=== PATIENT | male | born 1965 | race Caucasian/White ===

== ENCOUNTER 2018-07-21 16:00 | Emergency (ER) | payer MEDICAID ==
[~2018-07-21] VITALS: Ht 180.3 cm; Wt 89.6 kg
[2018-07-21] MEDS ORDERED: ASPIRIN 81 MG TABLET CHEW PO ONE (16:30)
[2018-07-21] MEDS ORDERED: SODIUM CHLORIDE FLUSH 10ML SYR IVF ONE (16:30)
[2018-07-21 16:50] LABS: BASOPHILS # (AUTO) 0.04 x10^3/uL (0-0.1); BASOPHILS % (AUTO) 0 % (0-1); EOSINOPHILS # (AUTO) 0.07 x10^3/uL (0-0.4); EOSINOPHILS % (AUTO) 1 % (1-7); LYMPHOCYTES # (AUTO) 2.38 x10^3/uL (1-3.4); LYMPHOCYTES % (AUTO) 24 % (22-44); MD NO; MEAN CORPUSCULAR HEMOGLOBIN 28.2 pg (27.5-34.5); MEAN CORPUSCULAR HGB CONC 33.7 g/dL (33.2-36.2); MEAN CORPUSCULAR VOLUME 83.9 fL (81-97); MEAN PLATELET VOLUME 7.9 fL (7.4-10.4); MONOCYTES # (AUTO) 0.53 x10^3/uL (0.2-0.8); MONOCYTES % (AUTO) 5 % (2-9); NEUTROPHILS # (AUTO) 7.01 x10^3/uL (1.8-6.8); NEUTROPHILS % (AUTO) 70 % (42-75); PLATELET COUNT 285 x10^3/uL (130-400); RED BLOOD COUNT 5.48 x10^6/uL (4.38-5.82); RED CELL DISTRIBUTION WIDTH 14.2 % (9.4-14.8)
[2018-07-21 17:01] LABS: ALANINE AMINOTRANSFERASE 21 U/L (12-78); ALBUMIN 4.1 g/dL (3.4-5.0); ANION GAP 9 mmol/L (5-15); CHLORIDE 104 mmol/L (98-107); CREATININE 0.97 mg/dL (0.7-1.3)
[2018-07-21 17:06] LABS: ALKALINE PHOSPHATASE 89 U/L (45-117); BILIRUBIN,TOTAL 0.8 mg/dL (0.2-1.0); TOTAL PROTEIN 8.1 g/dL (6.4-8.2); TROPONIN I < 0.015 ng/mL (0.000-0.045)
--- NOTE | 2018-07-21 19:30 | NUR ---
PT TO ROOM FROM LOBBY
--- NOTE | 2018-07-21 19:41 | NUR ---
52 Y/O MALE PRESENTS TO THE ER C/O CHEST PAIN X 1 WEEK. PT WAS AMBULATORY HERE TODAY. HE DESCRIBES THE PAIN SUBSTERNAL, "MUSCLE PAIN". PT DESCRIBES THE PAIN A "PULLING PAIN". DENIES ANY SOB, WEAKNESS, DIZZINESS, N/V, DIAPHORESIS. SKIN IS PINK/WARM/DRY. HX OF DIABETES, PT STATES HE IS COMPLIANT WITH MEDS HOWEVER DOES NOT CHECK FSBS LEVELS OFTEN, ALSO HX OF HTN, HYPERLIPIDEMIA, BIPOLAR, DEPRESSION AND PTSD. ALL MONITORING EQUIPMENT APPLIED. VITALS STABLE. NSR ON MONITOR. NO ECTOPY OR ST CHANGES PRESENT. RADHA SHAW AT BEDSIDE EVALUATING PT. WILL CONTINUE TO MONITOR. REPORT GIVEN TO PRIMARY RN SABRINA.
[2018-07-21 19:44] VITALS: BP 133/94
[2018-07-21] MEDS ORDERED: ASPIRIN 81 MG TABLET CHEW ONE (19:47)
== END 2018-07-21 20:53 | disposition home or self-care (01) ==
LOC: ED 20:15
DX: R07.89 Other chest pain (principal)
CPT/HCPCS: 36415; 71046; 80053; 84484; 85025; 93005; 99284

== ENCOUNTER 2018-11-09 10:40 | Inpatient (IN) | payer MEDICAID ==
[~2018-11-09] VITALS: Ht 182.9 cm; Wt 89.6 kg
[2018-11-09 11:29] LABS: BASOPHILS # (AUTO) 0.05 x10^3/uL (0-0.1); BASOPHILS % (AUTO) 1 % (0-1); EOSINOPHILS # (AUTO) 0.16 x10^3/uL (0-0.4); EOSINOPHILS % (AUTO) 2 % (1-7); LYMPHOCYTES # (AUTO) 2.36 x10^3/uL (1-3.4); LYMPHOCYTES % (AUTO) 32 % (22-44); MD NO; MEAN CORPUSCULAR HGB CONC 32.7 g/dL (33.2-36.2); MEAN CORPUSCULAR VOLUME 82.8 fL (81-97); MEAN PLATELET VOLUME 8.6 fL (7.4-10.4); MONOCYTES # (AUTO) 0.53 x10^3/uL (0.2-0.8); MONOCYTES % (AUTO) 7 % (2-9); NEUTROPHILS # (AUTO) 4.26 x10^3/uL (1.8-6.8); NEUTROPHILS % (AUTO) 58 % (42-75); PLATELET COUNT 291 x10^3/uL (130-400); RED CELL DISTRIBUTION WIDTH 15.5 % (9.4-14.8)
[2018-11-09] MEDS ORDERED: SODIUM CHLORIDE FLUSH 10ML SYR IVF ONE (11:30)
[2018-11-09] MEDS ORDERED: VANCOMYCIN 1,800 MG in SODIUM CHLORIDE 0.9% 250 ML IV ONE (11:30)
[2018-11-09] MEDS ORDERED: VANCOMYCIN PER PHARMACY MC PRN ×2 (11:30→13:30)
[2018-11-09 11:37] LABS: ALANINE AMINOTRANSFERASE 19 U/L (12-78); ALBUMIN 3.3 g/dL (3.4-5.0); ANION GAP 11 mmol/L (5-15); CALCIUM 8.6 mg/dL (8.5-10.1); CHLORIDE 100 mmol/L (98-107); CREATININE 0.87 mg/dL (0.7-1.3)
[2018-11-09 11:39] LABS: ALKALINE PHOSPHATASE 133 U/L (45-117); BILIRUBIN,TOTAL 0.5 mg/dL (0.2-1.0); TOTAL PROTEIN 7.6 g/dL (6.4-8.2)
[2018-11-09] MEDS ORDERED: SODIUM CHLORIDE 0.9% 1,000ML IVBOLUS ONE (12:00)
--- NOTE | 2018-11-09 12:10 | NUR ---
Pt presents for worsening wounds to L foot x 3 days. Pt states he does not have PCP. Denies fevers. CSM intact with reduced sensation. VSS.
[2018-11-09] MEDS ORDERED: GABA300C10 PO (12:19)
[2018-11-09] MEDS ORDERED: MIRT15TA4 PO (12:19)
[2018-11-09] MEDS ORDERED: FLUO20CA19 PO (12:19)
[2018-11-09] MEDS ORDERED: INSU100V13 SC (12:19)
[2018-11-09 13:16] VITALS: BP 131/86
[2018-11-09] MEDS ORDERED: hydrALAzine 20 MG/ML, 1ML IVPush PRN (13:30)
[2018-11-09] MEDS ORDERED: ACETAMINOPHEN 325 MG TABLET PO PRN (13:30)
[2018-11-09] MEDS ORDERED: DEXTROSE 50%, 50ML SYRINGE IVPush PRN (13:30)
[2018-11-09] MEDS ORDERED: ENOXAPARIN 40 MG/0.4 ML SQ SCH (13:30)
[2018-11-09] MEDS ORDERED: morphine SULFATE 10 MG/ML, 1ML IVPush PRN (13:30)
[2018-11-09] MEDS ORDERED: ONDANSETRON 2MG/ML, 2ML IVPush PRN (13:30)
[2018-11-09] MEDS ORDERED: GLUCAGON 1 MG IM PRN (13:30)
[2018-11-09] MEDS ORDERED: DEXTROSE 4 GM TAB.CHEW PO PRN (13:30)
[2018-11-09] MEDS ORDERED: PHARMACOKINETIC CONSULTATION MC ONE (14:00)
[2018-11-09] MEDS ORDERED: PHARMACOKINETIC MONITORING MC PRN (14:00)
[2018-11-09] MEDS ORDERED: GADOBUTROL 10 MMOL/10 ML PFS ONE (14:21)
[2018-11-09 14:37] LABS: HEMOGLOBIN A1C 9.7 % (4.2-6.3)
[2018-11-09] MEDS: AMPICILLIN/SULBACTAM 3 GM in SODIUM CHLORIDE 0.9% 100 ML IV SCH ×2 (14:57→22:24)
[2018-11-09] MEDS: NS + 20MEQ KCL 1,000 ML IV SCH (14:58)
[2018-11-09] MEDS: GABAPENTIN 300 MG CAPSULE PO SCH ×2 (15:59→20:33)
[2018-11-09] MEDS: INSULIN LISPRO 100 UNITS/ML, PEN SQ-INSULIN SCH ×2 (16:04→20:44)
[2018-11-09 19:12] VITALS: BP 138/90
[2018-11-09] MEDS: MIRTAZAPINE 15 MG TABLET PO SCH (20:33)
[2018-11-09] MEDS: SODIUM CHLORIDE FLUSH 10ML SYR IVF SCH (20:50)
[2018-11-10] MEDS: VANCOMYCIN 1,800 MG in SODIUM CHLORIDE 0.9% 250 ML IV SCH ×2 (00:16→11:51)
[2018-11-10 01:19] VITALS: BP 129/84
[2018-11-10] MEDS: NS + 20MEQ KCL 1,000 ML IV SCH (03:26)
[2018-11-10 05:45] LABS: ANION GAP 8 mmol/L (5-15); CHLORIDE 108 mmol/L (98-107)
[2018-11-10 05:46] LABS: CREATININE 0.58 mg/dL (0.7-1.3)
[2018-11-10 05:58] LABS: BASOPHILS # (AUTO) 0.05 x10^3/uL (0-0.1); BASOPHILS % (AUTO) 1 % (0-1); EOSINOPHILS # (AUTO) 0.29 x10^3/uL (0-0.4); EOSINOPHILS % (AUTO) 5 % (1-7); LYMPHOCYTES # (AUTO) 2.54 x10^3/uL (1-3.4); LYMPHOCYTES % (AUTO) 43 % (22-44); MD NO; MEAN CORPUSCULAR HEMOGLOBIN 27.2 pg (27.5-34.5); MEAN CORPUSCULAR HGB CONC 33.1 g/dL (33.2-36.2); MEAN CORPUSCULAR VOLUME 82.3 fL (81-97); MONOCYTES % (AUTO) 8 % (2-9); NEUTROPHILS # (AUTO) 2.58 x10^3/uL (1.8-6.8); NEUTROPHILS % (AUTO) 43 % (42-75); PLATELET COUNT 264 x10^3/uL (130-400); RED BLOOD COUNT 4.74 x10^6/uL (4.38-5.82); RED CELL DISTRIBUTION WIDTH 15.8 % (9.4-14.8)
[2018-11-10] MEDS: AMPICILLIN/SULBACTAM 3 GM in SODIUM CHLORIDE 0.9% 100 ML IV SCH ×3 (06:22→22:09)
[2018-11-10 07:05] VITALS: BP 126/79
[2018-11-10] MEDS ORDERED: INSULIN GLARGINE 100 UNITS/ML, PEN SQ-INSULIN SCH (09:00)
[2018-11-10] MEDS: FLUOXETINE HCL 20 MG CAPSULE PO SCH (09:37)
[2018-11-10] MEDS: GABAPENTIN 300 MG CAPSULE PO SCH ×3 (09:37→20:09)
[2018-11-10] MEDS: SODIUM CHLORIDE FLUSH 10ML SYR IVF SCH ×2 (09:39→20:09)
[2018-11-10] MEDS: INSULIN LISPRO 100 UNITS/ML, PEN SQ-INSULIN SCH ×4 (09:44→20:17)
[2018-11-10 12:20] VITALS: BP 133/82
[2018-11-10] MEDS: ENOXAPARIN 40 MG/0.4 ML SQ SCH (14:26)
[2018-11-10] MEDS: MIRTAZAPINE 15 MG TABLET PO SCH (20:09)
[2018-11-10 20:58] VITALS: BP 130/82
[2018-11-11 00:32] VITALS: BP 134/89
[2018-11-11 04:34] LABS: BASOPHILS # (AUTO) 0.02 x10^3/uL (0-0.1); BASOPHILS % (AUTO) 0 % (0-1); EOSINOPHILS # (AUTO) 0.26 x10^3/uL (0-0.4); EOSINOPHILS % (AUTO) 4 % (1-7); LYMPHOCYTES # (AUTO) 2.35 x10^3/uL (1-3.4); LYMPHOCYTES % (AUTO) 39 % (22-44); MD NO; MEAN PLATELET VOLUME 8.4 fL (7.4-10.4); MONOCYTES # (AUTO) 0.41 x10^3/uL (0.2-0.8); MONOCYTES % (AUTO) 7 % (2-9); NEUTROPHILS # (AUTO) 2.98 x10^3/uL (1.8-6.8); NEUTROPHILS % (AUTO) 50 % (42-75); PLATELET COUNT 310 x10^3/uL (130-400); RED CELL DISTRIBUTION WIDTH 15.8 % (9.4-14.8)
[2018-11-11 04:44] LABS: ALANINE AMINOTRANSFERASE 16 U/L (12-78); ALBUMIN 2.9 g/dL (3.4-5.0); ANION GAP 6 mmol/L (5-15); CALCIUM 8.6 mg/dL (8.5-10.1); CHLORIDE 105 mmol/L (98-107); CREATININE 0.62 mg/dL (0.7-1.3)
[2018-11-11 04:51] LABS: ALKALINE PHOSPHATASE 93 U/L (45-117); BILIRUBIN,TOTAL 0.4 mg/dL (0.2-1.0); TOTAL PROTEIN 6.7 g/dL (6.4-8.2)
[2018-11-11 05:12] LABS: HCT (SEDRATE) 44.2 % (39.2-51.8)
[2018-11-11] MEDS: AMPICILLIN/SULBACTAM 3 GM in SODIUM CHLORIDE 0.9% 100 ML IV SCH ×3 (06:08→20:51)
[2018-11-11 06:56] VITALS: BP 131/87
[2018-11-11] MEDS: GABAPENTIN 300 MG CAPSULE PO SCH ×3 (07:55→20:51)
[2018-11-11] MEDS: FLUOXETINE HCL 20 MG CAPSULE PO SCH (07:56)
[2018-11-11] MEDS: SODIUM CHLORIDE FLUSH 10ML SYR IVF SCH ×2 (07:56→20:52)
[2018-11-11] MEDS: INSULIN LISPRO 100 UNITS/ML, PEN SQ-INSULIN SCH ×4 (08:04→20:52)
[2018-11-11] MEDS ORDERED: INSULIN GLARGINE 100 UNITS/ML, PEN SQ-INSULIN SCH (09:00)
[2018-11-11] MEDS: VANCOMYCIN 1,800 MG in SODIUM CHLORIDE 0.9% 250 ML IV SCH ×3 (12:05→23:55)
[2018-11-11 12:24] VITALS: BP 115/81
[2018-11-11] MEDS: ENOXAPARIN 40 MG/0.4 ML SQ SCH (13:52)
[2018-11-11 20:18] VITALS: BP 119/78
[2018-11-11] MEDS: MIRTAZAPINE 15 MG TABLET PO SCH (20:51)
[2018-11-12 01:38] VITALS: BP 133/87
[2018-11-12] MEDS: AMPICILLIN/SULBACTAM 3 GM in SODIUM CHLORIDE 0.9% 100 ML IV SCH ×3 (06:14→21:48)
[2018-11-12] MEDS: INSULIN GLARGINE 100 UNITS/ML, PEN SQ-INSULIN SCH (07:38)
[2018-11-12] MEDS: INSULIN LISPRO 100 UNITS/ML, PEN SQ-INSULIN SCH ×4 (07:38→21:47)
[2018-11-12] MEDS: GABAPENTIN 300 MG CAPSULE PO SCH ×3 (07:39→21:48)
[2018-11-12] MEDS: FLUOXETINE HCL 20 MG CAPSULE PO SCH (07:39)
[2018-11-12] MEDS: SODIUM CHLORIDE FLUSH 10ML SYR IVF SCH ×2 (07:39→21:00)
[2018-11-12 08:06] VITALS: BP 117/78
[2018-11-12] MEDS: VANCOMYCIN 1,800 MG in SODIUM CHLORIDE 0.9% 250 ML IV SCH (11:59)
[2018-11-12] MEDS: ENOXAPARIN 40 MG/0.4 ML SQ SCH (11:59)
[2018-11-12 13:19] VITALS: BP 126/82
[2018-11-12] MEDS: DAPTOMYCIN 550 MG in SODIUM CHLORIDE 0.9% 100 ML IVPB SCH (16:26)
[2018-11-12] MEDS ORDERED: PNEUMOC 13-VALENT VACC, 0.5 ML IM-VACC ONE (17:00)
[2018-11-12 18:39] VITALS: BP 130/84
[2018-11-12] MEDS: MIRTAZAPINE 15 MG TABLET PO SCH (21:48)
[2018-11-13 00:33] VITALS: BP 118/78
[2018-11-13] MEDS: AMPICILLIN/SULBACTAM 3 GM in SODIUM CHLORIDE 0.9% 100 ML IV SCH ×2 (05:52→15:57)
[2018-11-13] MEDS: GABAPENTIN 300 MG CAPSULE PO SCH ×3 (09:12→20:24)
[2018-11-13] MEDS: FLUOXETINE HCL 20 MG CAPSULE PO SCH (09:12)
[2018-11-13] MEDS: INSULIN LISPRO 100 UNITS/ML, PEN SQ-INSULIN SCH ×4 (09:12→20:24)
[2018-11-13] MEDS: SODIUM CHLORIDE FLUSH 10ML SYR IVF SCH ×2 (09:18→20:25)
[2018-11-13] MEDS: INSULIN GLARGINE 100 UNITS/ML, PEN SQ-INSULIN SCH (09:18)
[2018-11-13] MEDS: ENOXAPARIN 40 MG/0.4 ML SQ SCH (11:52)
[2018-11-13 14:36] VITALS: BP 116/75
[2018-11-13] MEDS: DAPTOMYCIN 550 MG in SODIUM CHLORIDE 0.9% 100 ML IVPB SCH (16:42)
[2018-11-13 19:48] VITALS: BP 118/79
[2018-11-13] MEDS: MIRTAZAPINE 15 MG TABLET PO SCH (20:24)
[2018-11-14] MEDS: AMPICILLIN/SULBACTAM 3 GM in SODIUM CHLORIDE 0.9% 100 ML IV SCH ×4 (00:17→23:57)
[2018-11-14 03:30] VITALS: BP 115/78
[2018-11-14] MEDS: INSULIN GLARGINE 100 UNITS/ML, PEN SQ-INSULIN SCH (07:36)
[2018-11-14] MEDS: INSULIN LISPRO 100 UNITS/ML, PEN SQ-INSULIN SCH ×4 (07:37→20:46)
[2018-11-14 07:53] VITALS: BP 105/68
[2018-11-14] MEDS: FLUOXETINE HCL 20 MG CAPSULE PO SCH (09:46)
[2018-11-14] MEDS: GABAPENTIN 300 MG CAPSULE PO SCH ×3 (09:46→20:30)
[2018-11-14] MEDS: SODIUM CHLORIDE FLUSH 10ML SYR IVF SCH ×2 (09:47→20:30)
[2018-11-14] MEDS ORDERED: INSULIN GLARGINE 100 UNITS/ML, PEN SQ-INSULIN ONE (10:30)
[2018-11-14] MEDS: ENOXAPARIN 40 MG/0.4 ML SQ SCH (13:32)
[2018-11-14 13:36] VITALS: BP 113/73
[2018-11-14] MEDS: DAPTOMYCIN 550 MG in SODIUM CHLORIDE 0.9% 100 ML IVPB SCH (17:48)
[2018-11-14 19:08] VITALS: BP 116/76
[2018-11-14] MEDS: MIRTAZAPINE 15 MG TABLET PO SCH (20:30)
[2018-11-15 03:55] VITALS: BP 127/72
[2018-11-15 07:21] VITALS: BP 121/81
[2018-11-15] MEDS: INSULIN LISPRO 100 UNITS/ML, PEN SQ-INSULIN SCH ×4 (07:30→20:52)
[2018-11-15] MEDS: GABAPENTIN 300 MG CAPSULE PO SCH ×3 (07:30→20:48)
[2018-11-15] MEDS: FLUOXETINE HCL 20 MG CAPSULE PO SCH (07:31)
[2018-11-15] MEDS: SODIUM CHLORIDE FLUSH 10ML SYR IVF SCH ×2 (07:56→20:48)
[2018-11-15] MEDS: AMPICILLIN/SULBACTAM 3 GM in SODIUM CHLORIDE 0.9% 100 ML IV SCH ×3 (07:56→23:44)
[2018-11-15] MEDS ORDERED: INSULIN GLARGINE 100 UNITS/ML, PEN SQ-INSULIN SCH (09:00)
[2018-11-15 13:12] VITALS: BP 120/74
[2018-11-15] MEDS: ENOXAPARIN 40 MG/0.4 ML SQ SCH (13:59)
[2018-11-15] MEDS: DAPTOMYCIN 550 MG in SODIUM CHLORIDE 0.9% 100 ML IVPB SCH (15:57)
[2018-11-15 18:48] VITALS: BP 126/79
[2018-11-15] MEDS: MIRTAZAPINE 15 MG TABLET PO SCH (20:48)
[2018-11-16 01:40] VITALS: BP 127/83
[2018-11-16 06:06] LABS: BASOPHILS # (AUTO) 0.05 x10^3/uL (0-0.1); BASOPHILS % (AUTO) 1 % (0-1); EOSINOPHILS % (AUTO) 3 % (1-7); LYMPHOCYTES # (AUTO) 2.73 x10^3/uL (1-3.4); LYMPHOCYTES % (AUTO) 46 % (22-44); MD NO; MEAN CORPUSCULAR HEMOGLOBIN 27.7 pg (27.5-34.5); MEAN CORPUSCULAR HGB CONC 32.7 g/dL (33.2-36.2); MEAN CORPUSCULAR VOLUME 84.5 fL (81-97); MEAN PLATELET VOLUME 8.1 fL (7.4-10.4); MONOCYTES # (AUTO) 0.52 x10^3/uL (0.2-0.8); MONOCYTES % (AUTO) 9 % (2-9); NEUTROPHILS # (AUTO) 2.46 x10^3/uL (1.8-6.8); NEUTROPHILS % (AUTO) 41 % (42-75); PLATELET COUNT 327 x10^3/uL (130-400); RED BLOOD COUNT 5.26 x10^6/uL (4.38-5.82); RED CELL DISTRIBUTION WIDTH 15.5 % (9.4-14.8)
[2018-11-16 06:16] LABS: ALANINE AMINOTRANSFERASE 17 U/L (12-78); ALBUMIN 2.9 g/dL (3.4-5.0); ANION GAP 6 mmol/L (5-15); C-REACTIVE PROTEIN, QUANT 0.63 mg/dL (0.02-0.49); CALCIUM 8.5 mg/dL (8.5-10.1); CHLORIDE 107 mmol/L (98-107); CREATININE 0.65 mg/dL (0.7-1.3)
[2018-11-16 06:18] LABS: ALKALINE PHOSPHATASE 87 U/L (45-117); BILIRUBIN,TOTAL 0.3 mg/dL (0.2-1.0); CREATINE KINASE, TOTAL 52 U/L (39-308); TOTAL PROTEIN 6.9 g/dL (6.4-8.2)
[2018-11-16 06:36] VITALS: BP 131/86
[2018-11-16 06:42] LABS: HCT (SEDRATE) 44.4 % (39.2-51.8)
[2018-11-16] MEDS: GABAPENTIN 300 MG CAPSULE PO SCH ×3 (07:36→20:33)
[2018-11-16] MEDS: FLUOXETINE HCL 20 MG CAPSULE PO SCH (07:36)
[2018-11-16] MEDS: INSULIN LISPRO 100 UNITS/ML, PEN SQ-INSULIN SCH ×4 (07:36→20:49)
[2018-11-16] MEDS: AMPICILLIN/SULBACTAM 3 GM in SODIUM CHLORIDE 0.9% 100 ML IV SCH ×3 (08:09→23:56)
[2018-11-16] MEDS: SODIUM CHLORIDE FLUSH 10ML SYR IVF SCH ×2 (08:10→20:33)
[2018-11-16] MEDS ORDERED: INSULIN GLARGINE 100 UNITS/ML, PEN SQ-INSULIN SCH (09:00)
[2018-11-16 12:30] VITALS: BP 124/80
[2018-11-16] MEDS ORDERED: INSULIN GLARGINE 100 UNITS/ML, PEN SQ-INSULIN ONE (13:00)
[2018-11-16] MEDS: ENOXAPARIN 40 MG/0.4 ML SQ SCH (13:21)
[2018-11-16] MEDS: DAPTOMYCIN 550 MG in SODIUM CHLORIDE 0.9% 100 ML IVPB SCH (15:20)
[2018-11-16 18:39] VITALS: BP 115/74
[2018-11-16] MEDS: MIRTAZAPINE 15 MG TABLET PO SCH (20:33)
[2018-11-17 02:11] VITALS: BP 112/74
[2018-11-17] MEDS: INSULIN LISPRO 100 UNITS/ML, PEN SQ-INSULIN SCH ×3 (08:02→16:27)
[2018-11-17] MEDS: FLUOXETINE HCL 20 MG CAPSULE PO SCH (08:03)
[2018-11-17] MEDS: GABAPENTIN 300 MG CAPSULE PO SCH ×2 (08:03→16:19)
[2018-11-17] MEDS: AMPICILLIN/SULBACTAM 3 GM in SODIUM CHLORIDE 0.9% 100 ML IV SCH ×2 (08:04→15:26)
[2018-11-17] MEDS: SODIUM CHLORIDE FLUSH 10ML SYR IVF SCH (08:04)
[2018-11-17 08:11] VITALS: BP 107/70
[2018-11-17] MEDS ORDERED: INSULIN GLARGINE 100 UNITS/ML, PEN SQ-INSULIN SCH (09:00)
[2018-11-17] MEDS: ENOXAPARIN 40 MG/0.4 ML SQ SCH (11:05)
[2018-11-17 12:31] VITALS: BP 114/72
[2018-11-17] MEDS ORDERED: INSU100I13 SQ-INSULIN (14:27)
[2018-11-17] MEDS ORDERED: AMPI3VIA IV (14:27)
[2018-11-17] MEDS ORDERED: DAPT500V6 IV (14:27)
[2018-11-17] MEDS ORDERED: ACET325T26 PO (14:27)
[2018-11-17] MEDS ORDERED: METF500T PO (14:27)
[2018-11-17] MEDS: DAPTOMYCIN 550 MG in SODIUM CHLORIDE 0.9% 100 ML IVPB SCH (16:19)
== END 2018-11-17 19:28 | DRG 638 ==
LOC: ED 11:44 → 3NW 11:45 → ED 12:10 → 3NW 12:25 → ED 12:25
PROVIDERS: ADMIT Hospitalist; ATTEND Hospitalist
PROC: 02HV33Z Insertion of Infusion Device into Superior Vena Cava, Percutaneous Approach (ICD-10-PCS; principal; 2018-11-13)
PROC: B548ZZA Ultrasonography of Superior Vena Cava, Guidance (ICD-10-PCS; 2018-11-13)
PROC: B5181ZA Fluoroscopy of Superior Vena Cava using Low Osmolar Contrast, Guidance (ICD-10-PCS; 2018-11-13)
DX: E11.628 Type 2 diabetes mellitus with other skin complications (principal); E11.52 Type 2 diabetes mellitus with diabetic peripheral angiopathy with gangrene; M86.8X8 Other osteomyelitis, other site; L03.115 Cellulitis of right lower limb; E44.0 Moderate protein-calorie malnutrition; I96 Gangrene, not elsewhere classified; E11.69 Type 2 diabetes mellitus with other specified complication; B95.62 Methicillin resistant Staphylococcus aureus infection as the cause of diseases classified elsewhere; E11.42 Type 2 diabetes mellitus with diabetic polyneuropathy; R00.0 Tachycardia, unspecified; E86.0 Dehydration; E11.65 Type 2 diabetes mellitus with hyperglycemia; F31.9 Bipolar disorder, unspecified; K76.0 Fatty (change of) liver, not elsewhere classified; L89.899 Pressure ulcer of other site, unspecified stage; Z68.26 Body mass index [BMI] 26.0-26.9, adult; Z59.0 Homelessness; Z79.4 Long term (current) use of insulin; Z79.899 Other long term (current) drug therapy; Z87.891 Personal history of nicotine dependence
CPT/HCPCS: 36415; 36573; 80048; 80053; 80202; 82550; 82962; 83036; 85025; 85651; 86140; 87040; 87070; 87077; 87186; 87205; 93005; 96374; 99285; A9585; G0378; J0295; J0878; J1650; J3370; J3480; C1751; G0009; J1815; J7030; J7050

== ENCOUNTER 2018-12-14 01:27 | Inpatient (IN) | payer MEDICAID ==
[~2018-12-14] VITALS: Ht 182.9 cm; Wt 90.2 kg
[2018-12-25 13:18] VITALS: BP 110/71
== END 2018-12-25 14:50 | disposition home or self-care (01) | DRG 314 ==
LOC: ED 03:07 → EDIP 03:15 → 4WST 03:49 → 3NW 12-25 06:11
PROVIDERS: ADMIT Internal Medicine; ATTEND Internal Medicine
PROC: 02PYX3Z Removal of Infusion Device from Great Vessel, External Approach (ICD-10-PCS; principal; 2018-12-16)
PROC: 02HV33Z Insertion of Infusion Device into Superior Vena Cava, Percutaneous Approach (ICD-10-PCS; 2018-12-16)
PROC: B5181ZA Fluoroscopy of Superior Vena Cava using Low Osmolar Contrast, Guidance (ICD-10-PCS; 2018-12-16)
PROC: B548ZZA Ultrasonography of Superior Vena Cava, Guidance (ICD-10-PCS; 2018-12-16)
DX: T82.524A Displacement of infusion catheter, initial encounter (principal); A41.9 Sepsis, unspecified organism; E87.1 Hypo-osmolality and hyponatremia; M86.171 Other acute osteomyelitis, right ankle and foot; N17.9 Acute kidney failure, unspecified; D69.6 Thrombocytopenia, unspecified; D70.9 Neutropenia, unspecified; E11.42 Type 2 diabetes mellitus with diabetic polyneuropathy; E83.39 Other disorders of phosphorus metabolism; E87.6 Hypokalemia; F31.9 Bipolar disorder, unspecified; Y83.8 Other surgical procedures as the cause of abnormal reaction of the patient, or of later complication, without mention of misadventure at the time of the procedure; G60.8 Other hereditary and idiopathic neuropathies; L29.9 Pruritus, unspecified; W18.39XA Other fall on same level, initial encounter; R50.2 Drug induced fever; S80.211A Abrasion, right knee, initial encounter; S80.212A Abrasion, left knee, initial encounter; L27.0 Generalized skin eruption due to drugs and medicaments taken internally; T36.0X5A Adverse effect of penicillins, initial encounter; Z59.0 Homelessness; Y92.89 Other specified places as the place of occurrence of the external cause; Z88.8 Allergy status to other drugs, medicaments and biological substances; Z79.2 Long term (current) use of antibiotics; Z79.4 Long term (current) use of insulin; Z79.899 Other long term (current) drug therapy; Z87.891 Personal history of nicotine dependence; Y93.89 Activity, other specified; Y99.8 Other external cause status
CPT/HCPCS: 36415; 71045; 76700; 77001; 80053; 80061; 80069; 81001; 82550; 82962; 83036; 83690; 83735; 84100; 84439; 84443; 85025; 85651; 86140; 87040; 87324; 89055; 93005; 96360; G0378; J0712; J1335; J1650; J2405; J3370; Q0162; C1751; J1815; J7030; J7050; Q0163

== ENCOUNTER 2018-12-27 04:11 | Emergency (ER) | payer MEDICAID ==
[~2018-12-27] VITALS: Ht 170.2 cm; Wt 85.0 kg
[2018-12-27 06:22] VITALS: BP 152/87
== END 2018-12-27 08:22 | disposition left against medical advice (07) ==
LOC: ED 05:18
DX: M25.551 Pain in right hip (principal); M25.561 Pain in right knee; M79.651 Pain in right thigh
CPT/HCPCS: 72170; 99283

== ENCOUNTER 2020-03-19 07:20 | Inpatient (IN) | payer MEDICAID ==
[~2020-03-19] VITALS: Ht 182.9 cm; Wt 81.5 kg
[~2020-03-19 07:20] MED LIST: ACET325T26 PO; AMPI3VIA IV; ASCO500T9 PO; CHOL400T2 PO; DAPT500V6 IV; DOCU-131 PO; FLUO20CA19 PO; FLUO20CA23 PO; GABA300C PO; GABA300C10 PO; GLIP5TAB10 PO; INSU100C5 SQ-INSULIN; INSU100I11 SQ-INSULIN; INSU100I13 SQ-INSULIN; INSU100V13 SC; INSU100V13 SQ; LINE600T15 PO; MELA3TAB31 PO; METF500T PO; METR500T PO; MIRT-34 PO; MIRT7.5T8 PO; MULT1TAB76 PO; ONDA4TAB13 PO; PIPE3.375 IV; TRAZ50TA66 PO; ZIPR60CA2 PO
--- NOTE | 2020-03-19 07:29 | NUR ---
PT BIB EMS FOR RIGHT FOOT REDNESS, SWELLING AND PAIN. PT SAYS "I WENT TO BED IT WAS FINE AND I WOKE UP THIS MORNING AND IT WAS LIKE THAT". PTS RIGHT FOOT APPEARS TO HAVE AN INFECTIONS MUCH OLDER THAN 12 HOURS OLD. PT RESTING IN [facility]. PROVIDER BEDSIDE FOR ASSESSMENT.
[2020-03-19] MEDS ORDERED: SODIUM CHLORIDE FLUSH 10ML SYR IVF ONE (07:30)
[2020-03-19] MEDS ORDERED: CLINDAMYCIN PMX 600MG/50ML 50 ML IV ONE (07:30)
[2020-03-19] MEDS ORDERED: CLINDAMYCIN PMX 600MG/50ML 50 ML ONE (07:33)
--- NOTE | 2020-03-19 07:59 | NUR ---
PT UP WALKING AROUND THE ROOM. REMOVING MONITORING EQUIPMENT. PT PUT BACK INTO RNEY
--- NOTE | 2020-03-19 08:09 | NUR ---
BLOODCULTURES DRAWN PRIOR TO ADM OF ABX
[2020-03-19 08:14] LABS: BASOPHILS % (AUTO) 1 % (0-1); EOSINOPHILS % (AUTO) 1 % (1-7); LYMPHOCYTES % (AUTO) 16 % (22-44); MEAN CORPUSCULAR HEMOGLOBIN 25.4 pg (27.5-34.5); MEAN CORPUSCULAR HGB CONC 33.1 g/dL (33.2-36.2); MONOCYTES % (AUTO) 9 % (2-9); NEUTROPHILS % (AUTO) 74 % (42-75); PLATELET COUNT 450 x10^3/uL (130-400); RED BLOOD COUNT 5.39 x10^6/uL (4.38-5.82); RED CELL DISTRIBUTION WIDTH 13.2 % (9.4-14.8)
[2020-03-19 08:15] LABS: MD NO
[2020-03-19 08:24] LABS: ALBUMIN 2.9 g/dL (3.4-5.0); ANION GAP 11 mmol/L (5-15); CALCIUM 9.2 mg/dL (8.5-10.1); CHLORIDE 95 mmol/L (98-107); CREATININE 0.95 mg/dL (0.7-1.3)
[2020-03-19] MEDS ORDERED: SODIUM CHLORIDE 0.9% 1,000ML IVBOLUS ONE (09:00)
--- NOTE | 2020-03-19 09:18 | NUR ---
REC BS REPORT PT RESTING NADN IV INFUSING WELL
[2020-03-19] MEDS ORDERED: VANCOMYCIN PER PHARMACY MC PRN (10:00)
[2020-03-19 10:09] LABS: HCT (SEDRATE) 41.4 % (39.2-51.8)
--- NOTE | 2020-03-19 11:00 | NUR ---
R FOOT CULTURE SENT MEAL HAS BEEN ORDRED
[2020-03-19] MEDS: CEFEPIME 2 GM in DEXTROSE 5% 100 ML IV SCH ×2 (11:17→19:34)
[2020-03-19] MEDS ORDERED: PHARMACOKINETIC CONSULTATION MC ONE (11:30)
[2020-03-19] MEDS ORDERED: VANCOMYCIN 1,900 MG in SODIUM CHLORIDE 0.9% 250 ML IV ONE (11:30)
[2020-03-19] MEDS ORDERED: PHARMACOKINETIC MONITORING MC PRN (11:30)
[2020-03-19] MEDS: INSULIN LISPRO 100 UNITS/ML, PEN SQ-INSULIN SCH ×3 (13:22→21:13)
--- NOTE | 2020-03-19 14:04 | NUR ---
PT IN MRI AT THIS TIME.
--- NOTE | 2020-03-19 14:43 | NUR ---
PT CONTINUES IN MRI AT THIS TIME.
[2020-03-19] MEDS ORDERED: GADOTERATE 10 MMOL/20 ML SYR ONE (15:08)
--- NOTE | 2020-03-19 15:38 | NUR ---
ATTEMPTED TO CALL REPORT x3. RECEIVING NURSE UNAVAILABLE. PT RETURNED FROM MRI AT THIS TIME, AWAITING TRANSPORT.
--- NOTE | 2020-03-19 15:40 | NUR ---
REPORT TO RECEIVING RN. PT LEAVING FLOOR AT THIS TIME.
[2020-03-19] MEDS ORDERED: HYDR50TA99 PO (17:21)
[2020-03-19] MEDS ORDERED: MIRT-37 PO (17:21)
[2020-03-19] MEDS ORDERED: GLIP-142 PO (17:21)
[2020-03-19] MEDS ORDERED: TRAZ150T62 PO (17:21)
[2020-03-19] MEDS ORDERED: ATOR20TA37 PO (17:21)
[2020-03-19] MEDS ORDERED: geodon (17:21)
[2020-03-19] MEDS ORDERED: LISI5TAB7 PO (17:21)
[2020-03-19] MEDS ORDERED: ZIPR80CA2 PO (17:25)
[2020-03-19 18:20] VITALS: BP 117/73
[2020-03-19] MEDS: ENOXAPARIN 40 MG/0.4 ML SQ SCH (21:03)
[2020-03-20 02:02] VITALS: BP 98/59
[2020-03-20] MEDS: CEFEPIME 2 GM in DEXTROSE 5% 100 ML IV SCH ×3 (03:28→19:15)
[2020-03-20 05:46] LABS: BASOPHILS % (AUTO) 1 % (0-1); EOSINOPHILS % (AUTO) 3 % (1-7); LYMPHOCYTES % (AUTO) 29 % (22-44); MEAN CORPUSCULAR HEMOGLOBIN 25.5 pg (27.5-34.5); MEAN CORPUSCULAR HGB CONC 33.6 g/dL (33.2-36.2); MEAN PLATELET VOLUME 7.1 fL (7.4-10.4); MONOCYTES % (AUTO) 12 % (2-9); NEUTROPHILS % (AUTO) 56 % (42-75); PLATELET COUNT 401 x10^3/uL (130-400); RED BLOOD COUNT 4.88 x10^6/uL (4.38-5.82)
[2020-03-20 05:56] LABS: ALBUMIN 2.5 g/dL (3.4-5.0); ANION GAP 7 mmol/L (5-15); CALCIUM 8.7 mg/dL (8.5-10.1); CHLORIDE 102 mmol/L (98-107)
[2020-03-20] MEDS ORDERED: VANCOMYCIN 1,500 MG in SODIUM CHLORIDE 0.9% 250 ML IV SCH (06:00)
[2020-03-20 06:01] LABS: ALANINE AMINOTRANSFERASE 27 U/L (12-78); ALKALINE PHOSPHATASE 105 U/L (45-117); BILIRUBIN,TOTAL 0.4 mg/dL (0.2-1.0); CREATININE 0.71 mg/dL (0.7-1.3); TOTAL PROTEIN 7.3 g/dL (6.4-8.2)
[2020-03-20 06:04] LABS: MD NO
[2020-03-20 07:34] VITALS: BP 118/76
[2020-03-20] MEDS: INSULIN LISPRO 100 UNITS/ML, PEN SQ-INSULIN SCH ×4 (07:50→20:06)
[2020-03-20 12:41] VITALS: BP 112/69
[2020-03-20] MEDS: VANCOMYCIN 1,500 MG in SODIUM CHLORIDE 0.9% 250 ML IV SCH (17:34)
[2020-03-20 18:44] VITALS: BP 101/65
[2020-03-20] MEDS: ENOXAPARIN 40 MG/0.4 ML SQ SCH (20:00)
[2020-03-20] MEDS: INSULIN GLARGINE 100 UNITS/ML, PEN SQ-INSULIN SCH (20:06)
[2020-03-21 00:59] VITALS: BP 123/76
[2020-03-21] MEDS: CEFEPIME 2 GM in DEXTROSE 5% 100 ML IV SCH ×3 (03:40→19:06)
[2020-03-21 06:03] LABS: BASOPHILS % (AUTO) 1 % (0-1); EOSINOPHILS % (AUTO) 4 % (1-7); LYMPHOCYTES % (AUTO) 30 % (22-44); MEAN CORPUSCULAR HEMOGLOBIN 24.9 pg (27.5-34.5); MEAN CORPUSCULAR HGB CONC 32.7 g/dL (33.2-36.2); MEAN PLATELET VOLUME 7.2 fL (7.4-10.4); MONOCYTES % (AUTO) 10 % (2-9); NEUTROPHILS % (AUTO) 55 % (42-75); PLATELET COUNT 444 x10^3/uL (130-400); RED BLOOD COUNT 5.01 x10^6/uL (4.38-5.82); RED CELL DISTRIBUTION WIDTH 13.5 % (9.4-14.8)
[2020-03-21 06:05] LABS: MD NO
[2020-03-21 06:14] LABS: CHLORIDE 103 mmol/L (98-107)
[2020-03-21 06:21] LABS: ALANINE AMINOTRANSFERASE 21 U/L (12-78); ALBUMIN 2.4 g/dL (3.4-5.0); ALKALINE PHOSPHATASE 102 U/L (45-117); ANION GAP 7 mmol/L (5-15); BILIRUBIN,TOTAL 0.6 mg/dL (0.2-1.0); CALCIUM 8.3 mg/dL (8.5-10.1); CREATININE 0.63 mg/dL (0.7-1.3); TOTAL PROTEIN 7.2 g/dL (6.4-8.2)
[2020-03-21 06:32] LABS: OCCULT BLOOD NEGATIVE (NEGATIVE)
[2020-03-21 06:48] VITALS: BP 128/78
[2020-03-21] MEDS: VANCOMYCIN 1,500 MG in SODIUM CHLORIDE 0.9% 250 ML IV SCH (07:35)
[2020-03-21] MEDS: INSULIN LISPRO 100 UNITS/ML, PEN SQ-INSULIN SCH ×4 (07:36→21:05)
[2020-03-21] MEDS ORDERED: hydrOXyzine 50MG TABLET PO PRN (11:00)
[2020-03-21] MEDS: ZIPRASIDONE 40MG CAPSULE PO SCH ×2 (11:39→20:54)
[2020-03-21 13:23] VITALS: BP 115/78
[2020-03-21] MEDS: VANCOMYCIN 1,600 MG in SODIUM CHLORIDE 0.9% 250 ML IV SCH (14:17)
[2020-03-21 19:49] VITALS: BP 121/79
[2020-03-21] MEDS: MIRTAZAPINE 15 MG TABLET PO SCH (20:54)
[2020-03-21] MEDS: ENOXAPARIN 40 MG/0.4 ML SQ SCH (20:54)
[2020-03-21] MEDS: ATORVASTATIN 20 MG TABLET PO SCH (20:54)
[2020-03-21] MEDS: TRAZODONE 150MG TABLET PO PRN (20:57)
[2020-03-21] MEDS: INSULIN GLARGINE 100 UNITS/ML, PEN SQ-INSULIN SCH (21:04)
[2020-03-22] MEDS: VANCOMYCIN 1,600 MG in SODIUM CHLORIDE 0.9% 250 ML IV SCH ×2 (01:57→15:15)
[2020-03-22 02:47] VITALS: BP 111/73
[2020-03-22] MEDS: CEFEPIME 2 GM in DEXTROSE 5% 100 ML IV SCH ×3 (03:59→20:00)
[2020-03-22] MEDS: ZIPRASIDONE 40MG CAPSULE PO SCH ×2 (07:37→20:01)
[2020-03-22] MEDS: INSULIN LISPRO 100 UNITS/ML, PEN SQ-INSULIN SCH ×4 (07:37→20:01)
[2020-03-22 07:58] VITALS: BP 105/69
[2020-03-22 14:04] VITALS: BP 107/64
[2020-03-22] MEDS: CEFAZOLIN PMX 1GM/50ML 50 ML IV SCH ×2 (16:21→23:57)
[2020-03-22 18:28] VITALS: BP 103/64
[2020-03-22] MEDS: ENOXAPARIN 40 MG/0.4 ML SQ SCH (20:00)
[2020-03-22] MEDS: MIRTAZAPINE 15 MG TABLET PO SCH (20:01)
[2020-03-22] MEDS: ATORVASTATIN 20 MG TABLET PO SCH (20:01)
[2020-03-22] MEDS ORDERED: INSULIN GLARGINE 100 UNITS/ML, PEN SQ-INSULIN SCH (21:00)
[2020-03-23 02:03] VITALS: BP 117/76
[2020-03-23] MEDS: CEFEPIME 2 GM in DEXTROSE 5% 100 ML IV SCH (03:09)
[2020-03-23 06:51] VITALS: BP 107/68
[2020-03-23] MEDS: CEFAZOLIN PMX 1GM/50ML 50 ML IV SCH (07:50)
[2020-03-23] MEDS: ZIPRASIDONE 40MG CAPSULE PO SCH ×2 (07:50→20:20)
[2020-03-23] MEDS: INSULIN LISPRO 100 UNITS/ML, PEN SQ-INSULIN SCH ×4 (07:50→20:30)
[2020-03-23 08:13] LABS: ALANINE AMINOTRANSFERASE 16 U/L (12-78); ALBUMIN 2.4 g/dL (3.4-5.0); ANION GAP 4 mmol/L (5-15); CALCIUM 8.5 mg/dL (8.5-10.1); CHLORIDE 107 mmol/L (98-107); CREATININE 0.64 mg/dL (0.7-1.3)
[2020-03-23 08:14] LABS: BASOPHILS % (AUTO) 1 % (0-1); EOSINOPHILS % (AUTO) 5 % (1-7); LYMPHOCYTES % (AUTO) 27 % (22-44); MEAN CORPUSCULAR HEMOGLOBIN 24.8 pg (27.5-34.5); MEAN CORPUSCULAR HGB CONC 32.5 g/dL (33.2-36.2); MEAN PLATELET VOLUME 6.9 fL (7.4-10.4); MONOCYTES % (AUTO) 7 % (2-9); NEUTROPHILS % (AUTO) 60 % (42-75); PLATELET COUNT 494 x10^3/uL (130-400); RED BLOOD COUNT 4.92 x10^6/uL (4.38-5.82); RED CELL DISTRIBUTION WIDTH 13.3 % (9.4-14.8)
[2020-03-23 08:15] LABS: ALKALINE PHOSPHATASE 92 U/L (45-117); BILIRUBIN,TOTAL 0.3 mg/dL (0.2-1.0)
[2020-03-23 08:18] LABS: MD NO
[2020-03-23] MEDS ORDERED: CEFAZOLIN 2,000 MG in SODIUM CHLORIDE 0.9% 50 ML IV SCH (10:30)
[2020-03-23] MEDS: CEFAZOLIN PMX 2GM/50ML 50 ML IVPB SCH ×2 (11:21→18:37)
[2020-03-23 12:35] VITALS: BP 110/70
[2020-03-23 18:47] VITALS: BP 113/75
[2020-03-23] MEDS: ENOXAPARIN 40 MG/0.4 ML SQ SCH (20:00)
[2020-03-23] MEDS: MIRTAZAPINE 15 MG TABLET PO SCH (20:20)
[2020-03-23] MEDS: ATORVASTATIN 20 MG TABLET PO SCH (20:20)
[2020-03-23] MEDS: TRAZODONE 150MG TABLET PO PRN (20:29)
[2020-03-23] MEDS ORDERED: INSULIN GLARGINE 100 UNITS/ML, PEN SQ-INSULIN SCH (21:00)
[2020-03-24 00:51] VITALS: BP 110/71
[2020-03-24] MEDS: CEFAZOLIN PMX 2GM/50ML 50 ML IVPB SCH ×2 (03:02→11:22)
[2020-03-24 05:46] LABS: BASOPHILS % (AUTO) 0 % (0-1); EOSINOPHILS % (AUTO) 4 % (1-7); LYMPHOCYTES % (AUTO) 31 % (22-44); MEAN CORPUSCULAR HEMOGLOBIN 25.3 pg (27.5-34.5); MEAN PLATELET VOLUME 6.9 fL (7.4-10.4); MONOCYTES % (AUTO) 8 % (2-9); NEUTROPHILS % (AUTO) 57 % (42-75); PLATELET COUNT 527 x10^3/uL (130-400); RED BLOOD COUNT 4.96 x10^6/uL (4.38-5.82); RED CELL DISTRIBUTION WIDTH 13.4 % (9.4-14.8)
[2020-03-24 05:47] LABS: MD NO
[2020-03-24 05:50] LABS: ANION GAP 4 mmol/L (5-15); CALCIUM 9.1 mg/dL (8.5-10.1); CHLORIDE 104 mmol/L (98-107)
[2020-03-24 07:30] VITALS: BP 109/72
[2020-03-24] MEDS: INSULIN LISPRO 100 UNITS/ML, PEN SQ-INSULIN SCH ×3 (07:43→15:58)
[2020-03-24] MEDS: ZIPRASIDONE 40MG CAPSULE PO SCH (07:43)
[2020-03-24] MEDS ORDERED: ZIPR40CA2 PO (11:48)
[2020-03-24] MEDS ORDERED: ENOX40SY4 SQ (11:48)
[2020-03-24] MEDS ORDERED: INSU100I13 SQ-INSULIN (11:48)
[2020-03-24] MEDS ORDERED: CEFA2PLA9 IV (11:48)
[2020-03-24 12:51] VITALS: BP 107/72
== END 2020-03-24 16:22 | DRG 638 ==
LOC: ED 07:50 → EDIP 08:35 → 3N 15:43
PROVIDERS: ADMIT Internal Medicine; ATTEND Internal Medicine
PROC: 02HV33Z Insertion of Infusion Device into Superior Vena Cava, Percutaneous Approach (ICD-10-PCS; principal; 2020-03-21)
PROC: B5181ZA Fluoroscopy of Superior Vena Cava using Low Osmolar Contrast, Guidance (ICD-10-PCS; 2020-03-21)
PROC: B548ZZA Ultrasonography of Superior Vena Cava, Guidance (ICD-10-PCS; 2020-03-21)
DX: E11.621 Type 2 diabetes mellitus with foot ulcer (principal); E87.2 Acidosis; M86.171 Other acute osteomyelitis, right ankle and foot; L03.115 Cellulitis of right lower limb; E11.628 Type 2 diabetes mellitus with other skin complications; B95.8 Unspecified staphylococcus as the cause of diseases classified elsewhere; E11.42 Type 2 diabetes mellitus with diabetic polyneuropathy; E11.65 Type 2 diabetes mellitus with hyperglycemia; E11.69 Type 2 diabetes mellitus with other specified complication; F31.9 Bipolar disorder, unspecified; F43.10 Post-traumatic stress disorder, unspecified; L27.0 Generalized skin eruption due to drugs and medicaments taken internally; L97.519 Non-pressure chronic ulcer of other part of right foot with unspecified severity; L97.529 Non-pressure chronic ulcer of other part of left foot with unspecified severity; Z53.20 Procedure and treatment not carried out because of patient's decision for unspecified reasons; Z79.2 Long term (current) use of antibiotics; Z79.4 Long term (current) use of insulin; Z79.899 Other long term (current) drug therapy; Z86.14 Personal history of Methicillin resistant Staphylococcus aureus infection; Z88.1 Allergy status to other antibiotic agents; Z91.19 Patient's noncompliance with other medical treatment and regimen; Z87.891 Personal history of nicotine dependence; Z88.8 Allergy status to other drugs, medicaments and biological substances
CPT/HCPCS: 36415; 36573; 80048; 80053; 80202; 82040; 82272; 82962; 83036; 83540; 83550; 83605; 84145; 84443; 85025; 85651; 86140; 87040; 87070; 87077; 87147; 87186; 87205; 93922; 96365; 96375; 99285; G0378; J0690; J1650; J3370; A9575; C1751; J1815; J7030; J7050

== ENCOUNTER 2020-05-07 09:11 | Emergency (ER) | payer MEDICAID ==
[~2020-05-07] VITALS: Ht 182.9 cm; Wt 80.0 kg
[~2020-05-07 09:11] MED LIST changes: +ATOR20TA37 PO; +CEFA2PLA9 IV; +ENOX40SY4 SQ; +GLIP-142 PO; +HYDR50TA99 PO; +LISI5TAB7 PO; +MIRT-37 PO; +TRAZ150T62 PO; +ZIPR40CA2 PO; +ZIPR80CA2 PO; +geodon
[2020-05-07 09:58] LABS: BASOPHILS % (AUTO) 1 % (0-1); EOSINOPHILS % (AUTO) 0 % (1-7); LYMPHOCYTES % (AUTO) 18 % (22-44); MEAN CORPUSCULAR HEMOGLOBIN 26.3 pg (27.5-34.5); MEAN CORPUSCULAR HGB CONC 32.6 g/dL (33.2-36.2); MEAN PLATELET VOLUME 7.7 fL (7.4-10.4); MONOCYTES % (AUTO) 6 % (2-9); NEUTROPHILS % (AUTO) 75 % (42-75); PLATELET COUNT 291 x10^3/uL (130-400); RED BLOOD COUNT 5.46 x10^6/uL (4.38-5.82); RED CELL DISTRIBUTION WIDTH 18.2 % (9.4-14.8)
[2020-05-07 09:59] LABS: MD NO
[2020-05-07 10:10] LABS: ALANINE AMINOTRANSFERASE 15 U/L (12-78); ALBUMIN 3.7 g/dL (3.4-5.0); ANION GAP 12 mmol/L (5-15); CALCIUM 9.1 mg/dL (8.5-10.1); CHLORIDE 98 mmol/L (98-107); CREATININE 1.46 mg/dL (0.7-1.3)
--- NOTE | 2020-05-07 10:21 | NUR ---
THIS IS A 54 RYAN OLD MALE WHO STATES HE HAS COME ON HARD TIMES AND HAS NO JOB, AND NO PLACE TO LIVE. HE ADMITS TO PREVIOUS ATTEMPTS IN SUICIDE THAT INCLUDED SLITTTING HIS WRISTS. PLAN PER PT IS TO DRINK HIMSELF TO . PT ADMITS TO NO MONEY AT THIS TIME BUT ACCESS TO FOOD STAMPS. PT IS CALM AND COOPERTIVE. ROOM SECURE AND SITTER IN HALLWAY
[2020-05-07 10:24] LABS: ALKALINE PHOSPHATASE 116 U/L (45-117); BILIRUBIN,TOTAL 0.6 mg/dL (0.2-1.0); TOTAL PROTEIN 7.9 g/dL (6.4-8.2)
[2020-05-07 10:35] LABS: SALICYLATE LEVEL < 1.7 mg/dL (2.8-20.0)
[2020-05-07 11:00] LABS: MICROSCOPIC AUTO
[2020-05-07] MEDS ORDERED: INSULIN REGULAR 100 UNITS/ML, 3ML VIAL IVPush ONE ×2 (11:00→13:00)
[2020-05-07] MEDS ORDERED: SODIUM CHLORIDE 0.9% 1,000ML IVBOLUS ONE (11:00)
[2020-05-07] MEDS ORDERED: TRAZODONE 50MG TABLET PO PRN (11:00)
[2020-05-07] MEDS ORDERED: INSULIN LISPRO 100 UNITS/ML, PEN ONE (11:07)
[2020-05-07 11:09] LABS: AMPHETAMINE SCREEN, URINE Negative (Negative); BARBITURATE SCREEN, URINE Negative (Negative); BENZODIAZEPINE SCREEN, URINE Negative (Negative); CANNABINOID SCREEN, URINE Negative (Negative); COCAINE SCREEN, URINE Negative (Negative); METHADONE SCREEN, URINE Negative (Negative); OPIATE SCREEN, URINE Negative (Negative)
--- NOTE | 2020-05-07 12:00 | NUR ---
pt resting comfortably in bed. iv fluids completed and pt medicated per order
[2020-05-07 13:53] VITALS: BP 123/82
--- NOTE | 2020-05-07 13:53 | NUR ---
ASSUMED CARE FROM [facility]. PT RESTING IN [facility] AT THIS TIME, MEAL TRAY PROVIDED, WILL CONTINUE TO MONITOR.
--- NOTE | 2020-05-07 14:34 | NUR ---
SPOKE TO GENE AT [facility], PT IS ACCEPTED BY DR. SMITH AND CAN ARRIVE ANYTIME AFTER 1600.
--- NOTE | 2020-05-07 16:07 | NUR ---
REPORT GIVEN TO KAROL FROM [facility]. PT AMBULATED TO AMBULANCE FOR TRANSPORT TO [place].
[2020-05-07] MEDS ORDERED: MIRTAZAPINE 15 MG TABLET PO SCH (21:00)
[2020-05-07] MEDS ORDERED: ZIPRASIDONE 40MG CAPSULE PO SCH (21:00)
== END 2020-05-07 16:10 ==
LOC: ED 10:28
DX: R45.851 Suicidal ideations (principal); F39 Unspecified mood [affective] disorder; E11.65 Type 2 diabetes mellitus with hyperglycemia; F31.9 Bipolar disorder, unspecified; Z87.891 Personal history of nicotine dependence
CPT/HCPCS: 36415; 80053; 80299; 80307; 80320; 80329; 81001; 82962; 83036; 85025; 96361; 96374; 96376; 99285; J1815; J7030; G0480

== ENCOUNTER 2020-05-21 13:57 | Emergency (ER) | payer MEDICAID ==
[~2020-05-21] VITALS: Ht 182.9 cm; Wt 86.0 kg
[2020-05-21] MEDS ORDERED: KETOROLAC 30 MG/1 ML ONE (14:17)
[2020-05-21] MEDS ORDERED: ONDANSETRON ODT 4 MG ONE (14:22)
[2020-05-21] MEDS ORDERED: ONDANSETRON ODT 4 MG PO ONE (14:30)
[2020-05-21] MEDS ORDERED: KETOROLAC 30 MG/1 ML IM ONE (14:30)
--- NOTE | 2020-05-21 14:31 | NUR ---
PROVIDER AT BEDSIDE
--- NOTE | 2020-05-21 14:31 | NUR ---
PT COMES IN C/O FATIGUE, CHEST PAIN, ABDOMINAL PAIN, AND MIGRAINE. STATES 8/10 NEWMAN AND 8/10 CHEST PAIN. EKG COMPLETE. MONITORS CONNECTED. ORDERED MEDICATIONS ADMINISTERED. LAB AND XRAY AT BEDSIDE
[2020-05-21 14:48] LABS: BASOPHILS % (AUTO) 1 % (0-1); EOSINOPHILS % (AUTO) 1 % (1-7); LYMPHOCYTES % (AUTO) 28 % (22-44); MEAN CORPUSCULAR HEMOGLOBIN 26.1 pg (27.5-34.5); MEAN CORPUSCULAR HGB CONC 32.9 g/dL (33.2-36.2); MEAN PLATELET VOLUME 7.7 fL (7.4-10.4); MONOCYTES % (AUTO) 10 % (2-9); NEUTROPHILS % (AUTO) 61 % (42-75); PLATELET COUNT 374 x10^3/uL (130-400); RED BLOOD COUNT 4.48 x10^6/uL (4.38-5.82); RED CELL DISTRIBUTION WIDTH 19.5 % (9.4-14.8)
[2020-05-21 14:49] LABS: MD NO
[2020-05-21 14:56] LABS: ALBUMIN 2.8 g/dL (3.4-5.0); ANION GAP 9 mmol/L (5-15); CALCIUM 8.2 mg/dL (8.5-10.1); CHLORIDE 105 mmol/L (98-107); CREATININE 0.77 mg/dL (0.7-1.3)
[2020-05-21 15:01] LABS: TROPONIN I < 0.015 ng/mL (0.000-0.045)
[2020-05-21 15:29] VITALS: BP 118/61
--- NOTE | 2020-05-21 15:31 | NUR ---
PT AMBULATED TO DISCHARGE WITH STEADY GAIT. PT ENCOURAGED TO FOLLOW UP DISCUSSED. PT ENCOURAGED TO RETURN TO THE ED WITH WORSENING SYMPTOMS. PT EDUCATED TO QUARANTEEN FOR 10 DAYS WHILE AWAITING COVID RESULTS. PT VERBALIZES UNDERSTANDING.
== END 2020-05-21 15:32 | disposition home or self-care (01) ==
LOC: ED 14:19
DX: J06.9 Acute upper respiratory infection, unspecified (principal); Z20.822 Contact with and (suspected) exposure to COVID-19; R07.9 Chest pain, unspecified; E11.9 Type 2 diabetes mellitus without complications
CPT/HCPCS: 71045; 80048; 82040; 83880; 84484; 85025; 87635; 93005; 96372; 99285; J1885; Q0162

== ENCOUNTER 2020-05-30 06:17 | Inpatient (IN) | payer MEDICAID ==
[~2020-05-30] VITALS: Ht 182.9 cm; Wt 85.0 kg
--- NOTE | 2020-05-30 06:45 | NUR ---
THIS IS A 54 YO M W/ C/O INCREASED LT FOOT PAIN, SWELLING AND REDNESS. PT W/ HX OF DM AND LT 2ND TOE AMPUTATION. PT HAS OPEN WOUND TO LATERAL ASPECT OF FOOT, PINKY TOE APPEARS NECROTIC. PT NOT CURRENTLY ON ABX. PT UNSURE OF HOME MEDS BUT STATES THERE ARE 5 ON FILE HERE. PT RESTING ON GURNEY W/ CALL LIGHT IN REACH AND SIDE RAILS UPX2. RESP EVEN AND UNLABORED, NADN.
--- NOTE | 2020-05-30 06:59 | NUR ---
PIV STARTED, LABS W/ 1ST SET OF BLOOD CULTURES DRAWN.
[2020-05-30] MEDS ORDERED: SODIUM CHLORIDE FLUSH 10ML SYR IVF ONE (07:00)
--- NOTE | 2020-05-30 07:05 | NUR ---
REPORT GIVEN TO NEO SETHI. PT RESTING ON [facility] W/ CALL LIGHT IN REACH AND SIDE RAILS UPX2. RESP EVEN AND UNLABORED, STEFF. AWAITING RESULTS.
[2020-05-30 07:21] LABS: ALANINE AMINOTRANSFERASE 25 U/L (12-78); ALBUMIN 2.4 g/dL (3.4-5.0); ANION GAP 9 mmol/L (5-15); CALCIUM 8.6 mg/dL (8.5-10.1); CHLORIDE 101 mmol/L (98-107); CREATININE 0.99 mg/dL (0.7-1.3)
[2020-05-30 07:23] LABS: ALKALINE PHOSPHATASE 96 U/L (45-117); BILIRUBIN,TOTAL 0.7 mg/dL (0.2-1.0); TOTAL PROTEIN 7.2 g/dL (6.4-8.2)
[2020-05-30 07:24] LABS: BASOPHILS % (AUTO) 1 % (0-1); EOSINOPHILS % (AUTO) 0 % (1-7); LYMPHOCYTES % (AUTO) 8 % (22-44); MEAN CORPUSCULAR HEMOGLOBIN 25.9 pg (27.5-34.5); MEAN CORPUSCULAR HGB CONC 32.9 g/dL (33.2-36.2); MONOCYTES % (AUTO) 9 % (2-9); NEUTROPHILS % (AUTO) 82 % (42-75); PLATELET COUNT 440 x10^3/uL (130-400); RED BLOOD COUNT 4.07 x10^6/uL (4.38-5.82); RED CELL DISTRIBUTION WIDTH 18.6 % (9.4-14.8)
[2020-05-30 07:25] LABS: MD NO
--- NOTE | 2020-05-30 07:32 | NUR ---
DISCUSSED WITH VIDAD PT MEETING SEPSIS CRITERIA. LACTIC ACID SEPSIS ORDERED
--- NOTE | 2020-05-30 07:54 | NUR ---
PT UPDATED ON POC, MEDICATED PER MAR, VSS
[2020-05-30] MEDS ORDERED: CEFAZOLIN PMX 1GM/50ML 50 ML IV ONE (08:00)
[2020-05-30] MEDS ORDERED: SODIUM CHLORIDE 0.9% 1,000 ML IV ONE (08:00)
[2020-05-30] MEDS: ENOXAPARIN 40 MG/0.4 ML SQ SCH (08:27)
[2020-05-30 09:12] VITALS: BP 150/79
[2020-05-30] MEDS ORDERED: ENOXAPARIN 40 MG/0.4 ML SQ SCH (11:00)
[2020-05-30] MEDS ORDERED: hydrOXyzine 50MG TABLET PO PRN (11:00)
[2020-05-30] MEDS: INSULIN LISPRO 100 UNITS/ML, PEN SQ-INSULIN SCH ×3 (11:48→20:57)
[2020-05-30] MEDS ORDERED: VANCOMYCIN PER PHARMACY MC PRN (13:30)
[2020-05-30] MEDS ORDERED: VANCOMYCIN 2,100 MG in SODIUM CHLORIDE 0.9% 500 ML IV ONE (14:00)
[2020-05-30] MEDS ORDERED: PHARMACOKINETIC CONSULTATION MC ONE (14:00)
[2020-05-30] MEDS ORDERED: PHARMACOKINETIC MONITORING MC PRN (14:00)
[2020-05-30] MEDS: CEFTRIAXONE PMX 1GM/50ML 50 ML IV SCH (14:46)
[2020-05-30 16:43] VITALS: BP 121/72
[2020-05-30 18:02] LABS: HCT (SEDRATE) 30.5 % (39.2-51.8)
[2020-05-30 18:46] VITALS: BP 114/66
[2020-05-30] MEDS: ACETAMINOPHEN 325 MG TABLET PO PRN (19:42)
[2020-05-30] MEDS: MIRTAZAPINE 15 MG TABLET PO SCH (19:42)
[2020-05-30] MEDS: ATORVASTATIN 20 MG TABLET PO SCH (19:42)
[2020-05-30] MEDS: ZIPRASIDONE 40MG CAPSULE PO SCH (19:42)
[2020-05-30] MEDS: INSULIN GLARGINE 100 UNITS/ML, PEN SQ-INSULIN SCH (20:59)
[2020-05-31 00:55] VITALS: BP 133/74
[2020-05-31] MEDS: VANCOMYCIN 1,700 MG in SODIUM CHLORIDE 0.9% 250 ML IV SCH ×2 (03:45→15:06)
[2020-05-31 04:40] LABS: BASOPHILS % (AUTO) 1 % (0-1); EOSINOPHILS % (AUTO) 2 % (1-7); LYMPHOCYTES % (AUTO) 13 % (22-44); MEAN CORPUSCULAR HEMOGLOBIN 26.6 pg (27.5-34.5); MEAN CORPUSCULAR HGB CONC 33.9 g/dL (33.2-36.2); MEAN PLATELET VOLUME 7.6 fL (7.4-10.4); MONOCYTES % (AUTO) 9 % (2-9); NEUTROPHILS % (AUTO) 75 % (42-75); PLATELET COUNT 376 x10^3/uL (130-400); RED BLOOD COUNT 3.81 x10^6/uL (4.38-5.82); RED CELL DISTRIBUTION WIDTH 18.7 % (9.4-14.8)
[2020-05-31 04:44] LABS: MD NO
[2020-05-31 04:51] LABS: ALANINE AMINOTRANSFERASE 30 U/L (12-78); ANION GAP 5 mmol/L (5-15); CHLORIDE 107 mmol/L (98-107); CREATININE 0.61 mg/dL (0.7-1.3)
[2020-05-31 04:54] LABS: ALKALINE PHOSPHATASE 89 U/L (45-117); BILIRUBIN,TOTAL 0.4 mg/dL (0.2-1.0); TOTAL PROTEIN 6.4 g/dL (6.4-8.2)
[2020-05-31] MEDS: INSULIN LISPRO 100 UNITS/ML, PEN SQ-INSULIN SCH ×4 (06:18→20:13)
[2020-05-31 06:59] VITALS: BP 109/62
[2020-05-31] MEDS: ENOXAPARIN 40 MG/0.4 ML SQ SCH (08:08)
[2020-05-31] MEDS: ZIPRASIDONE 40MG CAPSULE PO SCH ×2 (08:08→20:03)
[2020-05-31 12:54] VITALS: BP 112/64
[2020-05-31] MEDS: CEFTRIAXONE PMX 1GM/50ML 50 ML IV SCH (14:02)
[2020-05-31] MEDS ORDERED: LIDOCAINE/PF 1%, 30ML ONE (14:45)
[2020-05-31] MEDS ORDERED: BUPIVACAINE/PF 0.5% ONE (14:45)
[2020-05-31] MEDS ORDERED: EPINEPHRINE 1 MG/ML, 1ML ONE (14:46)
[2020-05-31] MEDS ORDERED: CHLORHEXIDINE 15 ML UDC ONE (15:10)
[2020-05-31] MEDS ORDERED: CHLORHEXIDINE 15 ML UDC MM ONE (15:30)
[2020-05-31] MEDS ORDERED: FENTANYL PF 100 MCG/2ML ONE (15:33)
[2020-05-31] MEDS ORDERED: FENTANYL PF 100 MCG/2ML IV PRN (16:30)
[2020-05-31] MEDS ORDERED: OXYcodone 5 MG/5 ML ORAL.SOL UDC PO PRN (16:30)
[2020-05-31] MEDS ORDERED: METHOCARBAMOL 1,000 MG in DEXTROSE 5% 100 ML IV PRN (16:30)
[2020-05-31] MEDS ORDERED: ACETAMINOPHEN 325 MG TABLET PO PRN (16:30)
[2020-05-31] MEDS ORDERED: ONDANSETRON 2MG/ML, 2ML IVPush PRN (16:30)
[2020-05-31] MEDS ORDERED: PROMETHAZINE 25 MG SUPP PR PRN (16:30)
[2020-05-31] MEDS ORDERED: PROMETHAZINE 25 MG/ML, 1ML IVPush PRN (16:30)
[2020-05-31] MEDS ORDERED: LORazepam 2 MG/ML, 1ML IVPush PRN (16:30)
[2020-05-31] MEDS ORDERED: HYDROmorphone 1 MG/ML, 1ML INJ IVPush PRN (16:30)
[2020-05-31] MEDS ORDERED: VANCOMYCIN 1,000 MG ONE (16:58)
[2020-05-31] MEDS ORDERED: CEFAZOLIN 1,000 MG ONE (17:08)
[2020-05-31] MEDS ORDERED: PROPOFOL 10 MG/ML, 20ML ONE (17:08)
[2020-05-31] MEDS ORDERED: ONDANSETRON 2MG/ML, 2ML ONE (17:08)
[2020-05-31] MEDS ORDERED: DEXAMETHASONE 4 MG/ML, 1ML ONE (17:08)
[2020-05-31] MEDS: MIRTAZAPINE 15 MG TABLET PO SCH (20:03)
[2020-05-31] MEDS: ATORVASTATIN 20 MG TABLET PO SCH (20:03)
[2020-05-31] MEDS: TRAZODONE 150MG TABLET PO PRN (20:07)
[2020-05-31] MEDS: INSULIN GLARGINE 100 UNITS/ML, PEN SQ-INSULIN SCH (20:13)
[2020-06-01 00:54] VITALS: BP 119/70
[2020-06-01] MEDS: ACETAMINOPHEN 325 MG TABLET PO PRN ×2 (01:06→08:10)
[2020-06-01 03:10] LABS: BASOPHILS % (AUTO) 1 % (0-1); EOSINOPHILS % (AUTO) 1 % (1-7); LYMPHOCYTES % (AUTO) 12 % (22-44); MEAN CORPUSCULAR HEMOGLOBIN 26.2 pg (27.5-34.5); MEAN CORPUSCULAR HGB CONC 33.5 g/dL (33.2-36.2); MEAN PLATELET VOLUME 7.9 fL (7.4-10.4); MONOCYTES % (AUTO) 10 % (2-9); NEUTROPHILS % (AUTO) 76 % (42-75); PLATELET COUNT 350 x10^3/uL (130-400); RED BLOOD COUNT 3.65 x10^6/uL (4.38-5.82); RED CELL DISTRIBUTION WIDTH 19.1 % (9.4-14.8)
[2020-06-01 03:19] LABS: MD NO
[2020-06-01 03:21] LABS: ALBUMIN 1.7 g/dL (3.4-5.0); ANION GAP 7 mmol/L (5-15); CALCIUM 7.6 mg/dL (8.5-10.1); CHLORIDE 104 mmol/L (98-107)
[2020-06-01 03:24] LABS: ALANINE AMINOTRANSFERASE 30 U/L (12-78); ALKALINE PHOSPHATASE 87 U/L (45-117); BILIRUBIN,TOTAL 0.3 mg/dL (0.2-1.0); CREATININE 1.64 mg/dL (0.7-1.3); TOTAL PROTEIN 5.8 g/dL (6.4-8.2)
[2020-06-01 03:37] VITALS: BP 101/63
[2020-06-01] MEDS: VANCOMYCIN 1,700 MG in SODIUM CHLORIDE 0.9% 250 ML IV SCH (03:37)
[2020-06-01 06:53] VITALS: BP 146/81
[2020-06-01] MEDS: INSULIN LISPRO 100 UNITS/ML, PEN SQ-INSULIN SCH ×4 (07:00→22:03)
[2020-06-01] MEDS: ZIPRASIDONE 40MG CAPSULE PO SCH ×2 (08:10→22:02)
[2020-06-01] MEDS: ENOXAPARIN 40 MG/0.4 ML SQ SCH (08:10)
[2020-06-01 12:08] VITALS: BP 103/68
[2020-06-01] MEDS: CEFTRIAXONE PMX 1GM/50ML 50 ML IV SCH (14:20)
[2020-06-01] MEDS ORDERED: PHARMACY MAY ADJ FOR RENAL FX MC PRN (16:30)
[2020-06-01] MEDS: CEFAZOLIN 2,000 MG in SODIUM CHLORIDE 0.9% 50 ML IV SCH (16:32)
[2020-06-01 20:28] VITALS: BP 109/68
[2020-06-01] MEDS: ATORVASTATIN 20 MG TABLET PO SCH (22:01)
[2020-06-01] MEDS: MIRTAZAPINE 15 MG TABLET PO SCH (22:01)
[2020-06-01] MEDS: INSULIN GLARGINE 100 UNITS/ML, PEN SQ-INSULIN SCH (22:02)
[2020-06-02 04:44] LABS: BASOPHILS % (AUTO) 1 % (0-1); EOSINOPHILS % (AUTO) 2 % (1-7); LYMPHOCYTES % (AUTO) 10 % (22-44); MEAN CORPUSCULAR HEMOGLOBIN 26.1 pg (27.5-34.5); MEAN CORPUSCULAR HGB CONC 33.3 g/dL (33.2-36.2); MEAN PLATELET VOLUME 7.7 fL (7.4-10.4); MONOCYTES % (AUTO) 13 % (2-9); NEUTROPHILS % (AUTO) 75 % (42-75); PLATELET COUNT 380 x10^3/uL (130-400); RED BLOOD COUNT 3.63 x10^6/uL (4.38-5.82); RED CELL DISTRIBUTION WIDTH 19.1 % (9.4-14.8)
[2020-06-02 04:45] LABS: MD NO
[2020-06-02 04:57] LABS: ANION GAP 8 mmol/L (5-15); CALCIUM 7.4 mg/dL (8.5-10.1); CHLORIDE 102 mmol/L (98-107)
[2020-06-02 04:58] LABS: CREATININE 3.27 mg/dL (0.7-1.3)
[2020-06-02] MEDS: CEFAZOLIN 2,000 MG in SODIUM CHLORIDE 0.9% 50 ML IV SCH ×2 (05:00→18:24)
[2020-06-02] MEDS: INSULIN LISPRO 100 UNITS/ML, PEN SQ-INSULIN SCH ×4 (07:00→22:58)
[2020-06-02 07:26] VITALS: BP 116/68
[2020-06-02] MEDS: ZIPRASIDONE 40MG CAPSULE PO SCH ×2 (08:11→22:50)
[2020-06-02] MEDS: HEPARIN 5,000 UNITS/ML, 1ML SQ SCH ×3 (08:12→23:01)
[2020-06-02] MEDS: SODIUM CHLORIDE 0.9% 1,000 ML IV SCH ×2 (08:12→17:00)
[2020-06-02] MEDS: HYDROmorphone 1 MG/ML, 1ML INJ IV PRN (10:25)
[2020-06-02 13:39] VITALS: BP 107/67
[2020-06-02 20:00] VITALS: BP 131/75
[2020-06-02] MEDS: MIRTAZAPINE 15 MG TABLET PO SCH (22:50)
[2020-06-02] MEDS: ATORVASTATIN 20 MG TABLET PO SCH (22:50)
[2020-06-02] MEDS: INSULIN GLARGINE 100 UNITS/ML, PEN SQ-INSULIN SCH (22:58)
[2020-06-03] MEDS: SODIUM CHLORIDE 0.9% 1,000 ML IV SCH ×3 (02:29→22:28)
[2020-06-03 03:11] VITALS: BP 111/70
[2020-06-03 03:57] LABS: MICROSCOPIC NOT IND
[2020-06-03 04:08] LABS: CREATININE,URINE RANDOM 23.6 mg/dL
[2020-06-03] MEDS: CEFAZOLIN 2,000 MG in SODIUM CHLORIDE 0.9% 50 ML IV SCH ×2 (06:08→17:58)
[2020-06-03 06:22] LABS: BASOPHILS % (AUTO) 1 % (0-1); EOSINOPHILS % (AUTO) 3 % (1-7); LYMPHOCYTES % (AUTO) 23 % (22-44); MEAN CORPUSCULAR HEMOGLOBIN 26.5 pg (27.5-34.5); MEAN CORPUSCULAR HGB CONC 33.6 g/dL (33.2-36.2); MONOCYTES % (AUTO) 17 % (2-9); NEUTROPHILS % (AUTO) 56 % (42-75); PLATELET COUNT 421 x10^3/uL (130-400); RED BLOOD COUNT 3.63 x10^6/uL (4.38-5.82); RED CELL DISTRIBUTION WIDTH 18.7 % (9.4-14.8)
[2020-06-03 06:30] LABS: CHLORIDE 107 mmol/L (98-107)
[2020-06-03 06:31] LABS: MD NO
[2020-06-03 06:39] LABS: ALANINE AMINOTRANSFERASE 19 U/L (12-78); ALBUMIN 1.6 g/dL (3.4-5.0); ALKALINE PHOSPHATASE 89 U/L (45-117); ANION GAP 11 mmol/L (5-15); BILIRUBIN,TOTAL 0.3 mg/dL (0.2-1.0); CALCIUM 7.9 mg/dL (8.5-10.1); CREATININE 3.74 mg/dL (0.7-1.3); TOTAL PROTEIN 5.7 g/dL (6.4-8.2)
[2020-06-03] MEDS: INSULIN LISPRO 100 UNITS/ML, PEN SQ-INSULIN SCH ×4 (07:00→20:47)
[2020-06-03 07:10] VITALS: BP 150/81
[2020-06-03] MEDS ORDERED: POLYETHYLENE GLYCOL 17 GM PACKET NG PRN (08:00)
[2020-06-03] MEDS ORDERED: SENNA/DOCUSATE TABLET ONE (08:07)
[2020-06-03] MEDS: HEPARIN 5,000 UNITS/ML, 1ML SQ SCH ×3 (08:13→23:30)
[2020-06-03] MEDS: SENNA/DOCUSATE TABLET PO SCH ×2 (08:13→20:36)
[2020-06-03] MEDS: ZIPRASIDONE 40MG CAPSULE PO SCH ×2 (08:13→20:46)
[2020-06-03 15:00] VITALS: BP 132/78
[2020-06-03 19:19] VITALS: BP 135/80
[2020-06-03] MEDS: MIRTAZAPINE 15 MG TABLET PO SCH (20:46)
[2020-06-03] MEDS: ATORVASTATIN 20 MG TABLET PO SCH (20:46)
[2020-06-03] MEDS: INSULIN GLARGINE 100 UNITS/ML, PEN SQ-INSULIN SCH (20:47)
[2020-06-04 05:15] LABS: ANION GAP 8 mmol/L (5-15); CALCIUM 7.6 mg/dL (8.5-10.1); CHLORIDE 110 mmol/L (98-107)
[2020-06-04 05:17] LABS: CREATININE 3.59 mg/dL (0.7-1.3)
[2020-06-04] MEDS: CEFAZOLIN 2,000 MG in SODIUM CHLORIDE 0.9% 50 ML IV SCH ×2 (06:13→17:41)
[2020-06-04] MEDS: INSULIN LISPRO 100 UNITS/ML, PEN SQ-INSULIN SCH ×6 (07:29→21:00)
[2020-06-04 07:34] VITALS: BP 136/77
[2020-06-04] MEDS: HEPARIN 5,000 UNITS/ML, 1ML SQ SCH ×3 (07:52→23:14)
[2020-06-04] MEDS: ZIPRASIDONE 40MG CAPSULE PO SCH ×2 (07:53→21:37)
[2020-06-04] MEDS: SODIUM CHLORIDE 0.9% 1,000 ML IV SCH ×2 (07:56→17:41)
[2020-06-04] MEDS: SENNA/DOCUSATE TABLET PO SCH ×2 (07:56→21:00)
[2020-06-04 12:40] VITALS: BP 138/81
[2020-06-04 19:27] VITALS: BP 139/81
[2020-06-04] MEDS: MIRTAZAPINE 15 MG TABLET PO SCH (21:37)
[2020-06-04] MEDS: ATORVASTATIN 20 MG TABLET PO SCH (21:37)
[2020-06-04] MEDS: INSULIN GLARGINE 100 UNITS/ML, PEN SQ-INSULIN SCH (21:48)
[2020-06-05 02:39] VITALS: BP 175/83
[2020-06-05] MEDS: SODIUM CHLORIDE 0.9% 1,000 ML IV SCH ×3 (04:11→23:37)
[2020-06-05 05:57] LABS: HCT (SEDRATE) 29.1 % (39.2-51.8)
[2020-06-05 06:08] LABS: ALBUMIN 1.8 g/dL (3.4-5.0); ANION GAP 8 mmol/L (5-15); CALCIUM 8.1 mg/dL (8.5-10.1); CHLORIDE 109 mmol/L (98-107)
[2020-06-05 06:10] LABS: BASOPHILS % (AUTO) 1 % (0-1); EOSINOPHILS % (AUTO) 4 % (1-7); LYMPHOCYTES % (AUTO) 27 % (22-44); MEAN CORPUSCULAR HEMOGLOBIN 26.4 pg (27.5-34.5); MEAN CORPUSCULAR HGB CONC 33.8 g/dL (33.2-36.2); MEAN PLATELET VOLUME 7.6 fL (7.4-10.4); MONOCYTES % (AUTO) 12 % (2-9); NEUTROPHILS % (AUTO) 56 % (42-75); PLATELET COUNT 438 x10^3/uL (130-400); RED BLOOD COUNT 3.73 x10^6/uL (4.38-5.82); RED CELL DISTRIBUTION WIDTH 19.1 % (9.4-14.8)
[2020-06-05 06:17] LABS: ALANINE AMINOTRANSFERASE 15 U/L (12-78); ALKALINE PHOSPHATASE 100 U/L (45-117); BILIRUBIN,TOTAL 0.2 mg/dL (0.2-1.0); CREATININE 3.23 mg/dL (0.7-1.3); TOTAL PROTEIN 6.1 g/dL (6.4-8.2)
[2020-06-05] MEDS: CEFAZOLIN 2,000 MG in SODIUM CHLORIDE 0.9% 50 ML IV SCH (06:27)
[2020-06-05 06:34] LABS: MD NO
[2020-06-05] MEDS: INSULIN LISPRO 100 UNITS/ML, PEN SQ-INSULIN SCH ×7 (07:00→20:08)
[2020-06-05 07:40] VITALS: BP 155/81
[2020-06-05] MEDS: SENNA/DOCUSATE TABLET PO SCH ×2 (07:42→20:33)
[2020-06-05] MEDS: HEPARIN 5,000 UNITS/ML, 1ML SQ SCH ×3 (07:43→23:22)
[2020-06-05] MEDS: ZIPRASIDONE 40MG CAPSULE PO SCH ×2 (07:43→20:33)
[2020-06-05] MEDS: HYDROmorphone 1 MG/ML, 1ML INJ IV PRN (09:32)
[2020-06-05] MEDS: SODIUM CHLORIDE 0.9% IV SCH ×2 (11:00→23:35)
[2020-06-05] MEDS: ERAVACYCLINE IV SCH ×2 (11:00→23:35)
[2020-06-05 12:34] VITALS: BP 139/79
[2020-06-05 19:16] VITALS: BP 148/70
[2020-06-05] MEDS: MIRTAZAPINE 15 MG TABLET PO SCH (20:33)
[2020-06-05] MEDS: ATORVASTATIN 20 MG TABLET PO SCH (20:33)
[2020-06-05] MEDS: INSULIN GLARGINE 100 UNITS/ML, PEN SQ-INSULIN SCH (20:34)
[2020-06-05] MEDS: TRAZODONE 150MG TABLET PO PRN (20:51)
[2020-06-06 01:34] VITALS: BP 130/78
[2020-06-06 05:03] LABS: ANION GAP 7 mmol/L (5-15); CALCIUM 7.6 mg/dL (8.5-10.1); CHLORIDE 106 mmol/L (98-107); CREATININE 3.06 mg/dL (0.7-1.3)
[2020-06-06] MEDS: INSULIN LISPRO 100 UNITS/ML, PEN SQ-INSULIN SCH ×4 (06:21→21:00)
[2020-06-06] MEDS: ZIPRASIDONE 40MG CAPSULE PO SCH ×2 (08:03→22:04)
[2020-06-06] MEDS: HEPARIN 5,000 UNITS/ML, 1ML SQ SCH ×3 (08:03→22:57)
[2020-06-06] MEDS: SENNA/DOCUSATE TABLET PO SCH ×2 (08:03→21:00)
[2020-06-06 08:06] VITALS: BP 137/77
[2020-06-06] MEDS ORDERED: ONDANSETRON 2MG/ML, 2ML IVPush PRN (09:30)
[2020-06-06] MEDS ORDERED: ONDANSETRON 4 MG TABLET PO PRN (09:30)
[2020-06-06] MEDS: SODIUM CHLORIDE 0.9% 1,000 ML IV SCH ×2 (10:56→22:03)
[2020-06-06] MEDS: ERAVACYCLINE IV SCH ×2 (11:15→22:55)
[2020-06-06] MEDS: SODIUM CHLORIDE 0.9% IV SCH ×2 (11:15→22:55)
[2020-06-06 13:30] VITALS: BP 152/81
[2020-06-06 18:28] VITALS: BP 148/84
[2020-06-06] MEDS: INSULIN GLARGINE 100 UNITS/ML, PEN SQ-INSULIN SCH (22:04)
[2020-06-06] MEDS: ATORVASTATIN 20 MG TABLET PO SCH (22:04)
[2020-06-06] MEDS: MIRTAZAPINE 15 MG TABLET PO SCH (22:04)
[2020-06-06] MEDS: TRAZODONE 150MG TABLET PO PRN (22:04)
[2020-06-07 05:57] LABS: BASOPHILS % (AUTO) 1 % (0-1); EOSINOPHILS % (AUTO) 1 % (1-7); LYMPHOCYTES % (AUTO) 26 % (22-44); MEAN CORPUSCULAR HEMOGLOBIN 26.2 pg (27.5-34.5); MEAN CORPUSCULAR HGB CONC 33.5 g/dL (33.2-36.2); MEAN PLATELET VOLUME 7.6 fL (7.4-10.4); MONOCYTES % (AUTO) 14 % (2-9); NEUTROPHILS % (AUTO) 58 % (42-75); PLATELET COUNT 466 x10^3/uL (130-400); RED BLOOD COUNT 3.86 x10^6/uL (4.38-5.82); RED CELL DISTRIBUTION WIDTH 19.3 % (9.4-14.8)
[2020-06-07 05:59] LABS: MD NO
[2020-06-07 06:05] LABS: ANION GAP 5 mmol/L (5-15); CALCIUM 7.6 mg/dL (8.5-10.1); CHLORIDE 105 mmol/L (98-107); CREATININE 2.75 mg/dL (0.7-1.3)
[2020-06-07] MEDS: INSULIN LISPRO 100 UNITS/ML, PEN SQ-INSULIN SCH ×4 (06:43→21:00)
[2020-06-07] MEDS: HEPARIN 5,000 UNITS/ML, 1ML SQ SCH ×3 (07:52→22:55)
[2020-06-07] MEDS: ZIPRASIDONE 40MG CAPSULE PO SCH ×2 (07:53→21:54)
[2020-06-07] MEDS: SODIUM CHLORIDE 0.9% 1,000 ML IV SCH (07:53)
[2020-06-07] MEDS: SENNA/DOCUSATE TABLET PO SCH ×2 (07:53→19:37)
[2020-06-07 07:57] VITALS: BP 149/75
[2020-06-07] MEDS: ERAVACYCLINE IV SCH ×2 (10:56→22:53)
[2020-06-07] MEDS: SODIUM CHLORIDE 0.9% IV SCH ×2 (10:56→22:53)
[2020-06-07 13:52] VITALS: BP 142/78
[2020-06-07 19:36] VITALS: BP 167/77
[2020-06-07] MEDS: TRAZODONE 150MG TABLET PO PRN (21:54)
[2020-06-07] MEDS: ATORVASTATIN 20 MG TABLET PO SCH (21:54)
[2020-06-07] MEDS: MIRTAZAPINE 15 MG TABLET PO SCH (21:54)
[2020-06-07] MEDS: INSULIN GLARGINE 100 UNITS/ML, PEN SQ-INSULIN SCH (21:54)
[2020-06-08 01:31] VITALS: BP 133/77
[2020-06-08 06:30] LABS: ANION GAP 9 mmol/L (5-15); CALCIUM 7.7 mg/dL (8.5-10.1); CHLORIDE 102 mmol/L (98-107); CREATININE 2.59 mg/dL (0.7-1.3)
[2020-06-08] MEDS: INSULIN LISPRO 100 UNITS/ML, PEN SQ-INSULIN SCH ×4 (06:33→21:32)
[2020-06-08] MEDS: SENNA/DOCUSATE TABLET PO SCH ×2 (07:56→21:00)
[2020-06-08] MEDS: ZIPRASIDONE 40MG CAPSULE PO SCH ×2 (07:57→21:33)
[2020-06-08] MEDS: HEPARIN 5,000 UNITS/ML, 1ML SQ SCH ×3 (07:57→22:41)
[2020-06-08 08:15] VITALS: BP 110/64
[2020-06-08] MEDS: DRONABINOL 2.5 MG CAPSULE PO SCH ×2 (09:40→21:32)
[2020-06-08] MEDS: ERAVACYCLINE IV SCH ×2 (11:48→23:25)
[2020-06-08] MEDS: SODIUM CHLORIDE 0.9% IV SCH ×2 (11:48→23:25)
[2020-06-08 14:45] VITALS: BP 121/72
[2020-06-08 19:51] VITALS: BP 143/77
[2020-06-08] MEDS: TRAZODONE 150MG TABLET PO PRN (21:32)
[2020-06-08] MEDS: INSULIN GLARGINE 100 UNITS/ML, PEN SQ-INSULIN SCH (21:32)
[2020-06-08] MEDS: ATORVASTATIN 20 MG TABLET PO SCH (21:33)
[2020-06-08] MEDS: MIRTAZAPINE 15 MG TABLET PO SCH (21:33)
[2020-06-09 02:05] VITALS: BP 113/73
[2020-06-09 05:50] LABS: ANION GAP 10 mmol/L (5-15); CHLORIDE 101 mmol/L (98-107); CREATININE 2.78 mg/dL (0.7-1.3)
[2020-06-09 06:26] VITALS: BP 111/66
[2020-06-09] MEDS: INSULIN LISPRO 100 UNITS/ML, PEN SQ-INSULIN SCH ×3 (06:43→15:59)
[2020-06-09] MEDS: HEPARIN 5,000 UNITS/ML, 1ML SQ SCH ×2 (07:36→15:02)
[2020-06-09] MEDS: ZIPRASIDONE 40MG CAPSULE PO SCH (08:06)
[2020-06-09] MEDS: DRONABINOL 2.5 MG CAPSULE PO SCH (08:06)
[2020-06-09] MEDS: SENNA/DOCUSATE TABLET PO SCH (08:06)
[2020-06-09] MEDS: SODIUM CHLORIDE 0.9% IV SCH (11:13)
[2020-06-09] MEDS: ERAVACYCLINE IV SCH (11:13)
[2020-06-09 13:35] VITALS: BP 119/69
[2020-06-09] MEDS ORDERED: TRAM50TA2 PO (15:24)
[2020-06-09] MEDS ORDERED: INSU100I11 SQ-INSULIN (15:24)
== END 2020-06-09 18:57 | DRG 854 ==
LOC: ED 06:28 → EDIP 07:48 → SUATTDRO 07:48 → 4NE 09:13
PROVIDERS: ADMIT Internal Medicine; ATTEND Internal Medicine
PROC: 0QBN0ZZ Excision of Right Metatarsal, Open Approach (ICD-10-PCS; 2020-05-31)
PROC: 0Y6N0Z8 Detachment at Left Foot, Complete 5th Ray, Open Approach (ICD-10-PCS; 2020-05-31)
PROC: 0QBP0ZX Excision of Left Metatarsal, Open Approach, Diagnostic (ICD-10-PCS; principal; 2020-05-31 17:30)
PROC: 0QBN0ZX Excision of Right Metatarsal, Open Approach, Diagnostic (ICD-10-PCS; 2020-05-31 17:30)
PROC: 02HV33Z Insertion of Infusion Device into Superior Vena Cava, Percutaneous Approach (ICD-10-PCS; 2020-06-09)
PROC: B5181ZA Fluoroscopy of Superior Vena Cava using Low Osmolar Contrast, Guidance (ICD-10-PCS; 2020-06-09)
PROC: B548ZZA Ultrasonography of Superior Vena Cava, Guidance (ICD-10-PCS; 2020-06-09)
DX: A41.9 Sepsis, unspecified organism (principal); E87.1 Hypo-osmolality and hyponatremia; L03.115 Cellulitis of right lower limb; L03.116 Cellulitis of left lower limb; N17.9 Acute kidney failure, unspecified; M86.8X7 Other osteomyelitis, ankle and foot; E11.40 Type 2 diabetes mellitus with diabetic neuropathy, unspecified; E11.621 Type 2 diabetes mellitus with foot ulcer; D63.8 Anemia in other chronic diseases classified elsewhere; E78.5 Hyperlipidemia, unspecified; E11.69 Type 2 diabetes mellitus with other specified complication; F31.9 Bipolar disorder, unspecified; L97.529 Non-pressure chronic ulcer of other part of left foot with unspecified severity; F43.10 Post-traumatic stress disorder, unspecified; I10 Essential (primary) hypertension; E11.65 Type 2 diabetes mellitus with hyperglycemia; Z87.891 Personal history of nicotine dependence; Z86.14 Personal history of Methicillin resistant Staphylococcus aureus infection; Z88.9 Allergy status to unspecified drugs, medicaments and biological substances; Z89.422 Acquired absence of other left toe(s); Z79.4 Long term (current) use of insulin; Z59.0 Homelessness; Z91.19 Patient's noncompliance with other medical treatment and regimen; Z88.8 Allergy status to other drugs, medicaments and biological substances
CPT/HCPCS: 36415; 73630; 84145; 96365; 99285; J3490; S0020; 36573; 76770; 80048; 80053; 80202; 81003; 82570; 82962; 83605; 83735; 83930; 83935; 84100; 84300; 85025; 85651; 86140; 87040; 87070; 87075; 87077; 87147; 87186; 87205; 87635; 88307; 88311; 93922; 97162; G0378; J0171; J0690; J0696; J1100; J1170; J1644; J1650; J2405; J2704; J3010; J3370; Q0167; C1751; J1815; J7030; J7040; J7050

== ENCOUNTER 2020-09-30 05:51 | Inpatient (IN) | payer MEDICAID ==
[~2020-09-30] VITALS: Ht 182.9 cm; Wt 77.4 kg
[~2020-09-30 05:51] MED LIST changes: +MIRT-14 PO; -MIRT-34 PO; +TRAM50TA2 PO
--- NOTE | 2020-09-30 06:09 | NUR ---
PT BIB [facility] C/O VOMITING AND GENERALIZED WEAKNESS TO LOWER EXTEMETIES. PT PLACED ON CR MONITOR. SIDE RAIL UP X2 CALL LIGHT WITHIN REACH.
--- NOTE | 2020-09-30 06:50 | NUR ---
REPORT GIVEN TO MACK SETHI.
--- NOTE | 2020-09-30 06:52 | NUR ---
SBAR REPORT RECEIVED FROM
--- NOTE | 2020-09-30 06:59 | NUR ---
Note marko in EDM - 09/30/20 at 0700 by ARETHA PT MEDICATED, SEE EMAR. PT APPEARS IRRITABLE WITH GF. COOPERATIVE WITH STAFF. VSS. SIDERAIL UPX 2. CALL LIGHT AT BEDSIDE.
--- NOTE | 2020-09-30 07:07 | NUR ---
PT PANTS AND SHOES REMOVED, HIS UNDERWEAR WERE SOILED AND WET. PT C/O OF BLE PAIN 12/26 DENIES N/T. CMS INTACT. PT HAS WOUND COVERED ON RIGHT SIDE OF FOOT THAT HE STATES HE WAS AT [facility] FOR 11 WEEKS, LEFT THERE FRIDAY. HE IS FOLLOWING UP WITH WOUND CARE. HE STATES REDNESS AROUND FOOT IS HOW IT ALWAYS IS. MD BEDSIDE NOW.
[2020-09-30 07:10] LABS: MEAN CORPUSCULAR HEMOGLOBIN 28.3 pg (27.5-34.5); MEAN CORPUSCULAR HGB CONC 33.9 g/dL (33.2-36.2); MEAN PLATELET VOLUME 7.9 fL (7.4-10.4); PLATELET COUNT 237 x10^3/uL (130-400); RED BLOOD COUNT 4.46 x10^6/uL (4.38-5.82); RED CELL DISTRIBUTION WIDTH 14.9 % (9.4-14.8)
[2020-09-30 07:22] LABS: ALANINE AMINOTRANSFERASE 52 U/L (12-78); ALBUMIN 3.4 g/dL (3.4-5.0); ANION GAP 16 mmol/L (5-15); CALCIUM 8.8 mg/dL (8.5-10.1); CHLORIDE 97 mmol/L (98-107)
[2020-09-30 07:25] LABS: ALKALINE PHOSPHATASE 83 U/L (45-117); TOTAL PROTEIN 7.2 g/dL (6.4-8.2)
--- NOTE | 2020-09-30 07:38 | NUR ---
PIV STARTED, PT TOLERATED WELL. VSS, NADN. REG/UNLABORED RESP. BEDRAIL UPX2, CALL LIGHT WITHIN REACH. XRAY BEDSIDE NOW.
[2020-09-30 07:50] LABS: MD YES
[2020-09-30 07:51] LABS: INTERNATIONAL NORMALIZED RATIO 1.18 (0.93-1.1); PROTHROMBIN TIME 12.6 Seconds (9.6-11.5)
[2020-09-30 07:54] LABS: <PLATELET ESTIMATE> ADEQUATE; <PLT MORPHOLOGY> NORMAL PLT MORPH; BAND#(MANUAL) 1.19 x10^3/uL; BANDS%(MANUAL) 10 % (0-7); LYMPH#(MANUAL) 0.48 x10^3/uL (1-3.4); LYMPHS% (MANUAL) 4 % (22-44); MONOS#(MANUAL) 0.48 x10^3/uL (0.3-2.7); MONOS% (MANUAL) 4 % (2-9); SEG#(MANUAL) 9.76 x10^3/uL (1.8-6.8); SEGS% (MANUAL) 82 % (42-75)
[2020-09-30 07:55] LABS: MICROCYTOSIS 1+
--- NOTE | 2020-09-30 08:01 | NUR ---
US BEDSIDE. NADN. ARCEO.
[2020-09-30] MEDS ORDERED: CLINDAMYCIN PMX 600MG/50ML 50 ML IV ONE (08:30)
[2020-09-30] MEDS ORDERED: CLINDAMYCIN PMX 600MG/50ML 50 ML ONE (08:43)
--- NOTE | 2020-09-30 09:03 | NUR ---
BLOOD CULTURE X2 COLLECTED AND LACTIC ACID BY LAB. ABX ADMINSTERED PER EMAR. VSS. NADN. CALL LIGHT WITHIN REACH.
[2020-09-30] MEDS: AMPICILLIN/SULBACTAM 3 GM in SODIUM CHLORIDE 0.9% 100 ML IV SCH ×2 (09:55→17:06)
[2020-09-30] MEDS ORDERED: SODIUM CHLORIDE 0.9% 1,000ML IVBOLUS ONE (10:00)
[2020-09-30] MEDS ORDERED: ENALAPRILAT 1.25 MG/ML, 2ML IVPush PRN (10:00)
[2020-09-30] MEDS ORDERED: ONDANSETRON ODT 4 MG PO PRN (10:00)
[2020-09-30] MEDS ORDERED: ONDANSETRON 2MG/ML, 2ML IVPush PRN (10:00)
[2020-09-30] MEDS ORDERED: GUAIFENESIN/DM 200-20MG, 10ML UDC PO PRN (10:00)
[2020-09-30] MEDS ORDERED: VANCOMYCIN PER PHARMACY MC PRN (10:00)
[2020-09-30] MEDS ORDERED: hydrALAzine 20 MG/ML, 1ML IVPush PRN (10:00)
[2020-09-30] MEDS ORDERED: BACLOFEN 10 MG TABLET PO PRN (10:00)
[2020-09-30] MEDS ORDERED: BUTALB/APAP/CAFFEINE 50MG/325MG/40MG PO PRN ×2 (10:00)
[2020-09-30 10:07] LABS: FREE T4 (FREE THYROXINE) 1.19 ng/dL (0.76-1.46)
[2020-09-30] MEDS ORDERED: VANCOMYCIN 1,800 MG in SODIUM CHLORIDE 0.9% 250 ML IV ONE (10:30)
[2020-09-30] MEDS ORDERED: PHARMACOKINETIC MONITORING MC PRN (10:30)
[2020-09-30] MEDS ORDERED: PHARMACOKINETIC CONSULTATION MC ONE (10:30)
--- NOTE | 2020-09-30 10:48 | NUR ---
VSS. PT MEDICATED PER JUL. SENT MED REQUEST TO PHARMACY FOR KCL 20 MEQ IN LR. NADN, PT RESTING, PROVIDED WATER. CALL LIGHTWITHIN REACH.
[2020-09-30 11:51] VITALS: BP 113/76
[2020-09-30 11:54] VITALS: BP 113/76
[2020-09-30] MEDS: POTASSIUM CHLORIDE 20 MEQ in LACTATED RINGERS 1,000 ML IV SCH ×2 (12:03→23:17)
[2020-09-30 12:36] VITALS: BP 113/76
[2020-09-30 13:50] VITALS: BP 108/72
[2020-09-30] MEDS ORDERED: hydrOXyzine 50MG TABLET PO PRN (17:30)
[2020-09-30] MEDS: GABAPENTIN 300 MG CAPSULE PO PRN (17:50)
[2020-09-30] MEDS: HEPARIN 5,000 UNITS/ML, 1ML SQ SCH (17:50)
[2020-09-30] MEDS: ACETAMINOPHEN 325 MG TABLET PO PRN (17:50)
[2020-09-30] MEDS ORDERED: GADOTERATE 10 MMOL/20ML SYR ONE (18:53)
[2020-09-30 19:30] VITALS: BP 114/77
[2020-09-30] MEDS: INSULIN GLARGINE 100 UNITS/ML, PEN SQ-INSULIN SCH (22:05)
[2020-09-30] MEDS: INSULIN LISPRO 100 UNITS/ML, PEN SQ-INSULIN SCH (22:05)
[2020-09-30] MEDS: ATORVASTATIN 20 MG TABLET PO SCH (22:06)
[2020-09-30] MEDS: MELATONIN 5 MG TABLET PO SCH (22:06)
[2020-09-30] MEDS: ZIPRASIDONE 40MG CAPSULE PO SCH (22:06)
[2020-10-01 00:52] VITALS: BP 113/76
[2020-10-01] MEDS: HEPARIN 5,000 UNITS/ML, 1ML SQ SCH ×3 (02:20→17:24)
[2020-10-01] MEDS: AMPICILLIN/SULBACTAM 3 GM in SODIUM CHLORIDE 0.9% 100 ML IV SCH ×3 (02:20→17:24)
[2020-10-01 05:22] LABS: MEAN CORPUSCULAR HEMOGLOBIN 28.6 pg (27.5-34.5); MEAN CORPUSCULAR HGB CONC 34.6 g/dL (33.2-36.2); MEAN PLATELET VOLUME 8.3 fL (7.4-10.4); PLATELET COUNT 165 x10^3/uL (130-400); RED BLOOD COUNT 4.02 x10^6/uL (4.38-5.82); RED CELL DISTRIBUTION WIDTH 14.7 % (9.4-14.8)
[2020-10-01 05:28] LABS: ALANINE AMINOTRANSFERASE 72 U/L (12-78); ALBUMIN 2.6 g/dL (3.4-5.0); ANION GAP 9 mmol/L (5-15); CALCIUM 8.7 mg/dL (8.5-10.1); CHLORIDE 101 mmol/L (98-107); CREATININE 0.85 mg/dL (0.7-1.3)
[2020-10-01 05:30] LABS: ALKALINE PHOSPHATASE 69 U/L (45-117); BILIRUBIN,TOTAL 0.9 mg/dL (0.2-1.0); TOTAL PROTEIN 6.7 g/dL (6.4-8.2)
[2020-10-01 05:52] LABS: MD YES
[2020-10-01 05:53] LABS: BAND#(MANUAL) 1.14 x10^3/uL; BANDS%(MANUAL) 11 % (0-7); LYMPH#(MANUAL) 1.46 x10^3/uL (1-3.4); LYMPHS% (MANUAL) 14 % (22-44); MONOS#(MANUAL) 1.04 x10^3/uL (0.3-2.7); MONOS% (MANUAL) 10 % (2-9); SEG#(MANUAL) 6.76 x10^3/uL (1.8-6.8); SEGS% (MANUAL) 65 % (42-75)
[2020-10-01 05:54] LABS: <PLATELET ESTIMATE> ADEQUATE; <PLT MORPHOLOGY> NORMAL PLT MORPH; <RBC MORPHOLOGY> NORMAL
[2020-10-01] MEDS ORDERED: VANCOMYCIN 1,800 MG in SODIUM CHLORIDE 0.9% 250 ML IV SCH (06:00)
[2020-10-01 06:43] VITALS: BP 101/64
[2020-10-01] MEDS ORDERED: ZIPRASIDONE 20MG CAPSULE ONE (08:48)
[2020-10-01] MEDS: INSULIN LISPRO 100 UNITS/ML, PEN SQ-INSULIN SCH ×4 (08:51→20:31)
[2020-10-01] MEDS: ZIPRASIDONE 40MG CAPSULE PO SCH ×2 (08:53→20:28)
[2020-10-01] MEDS: SENNA/DOCUSATE TABLET PO SCH (08:53)
[2020-10-01] MEDS: ACETAMINOPHEN 325 MG TABLET PO PRN ×3 (09:05→19:45)
[2020-10-01] MEDS: GABAPENTIN 300 MG CAPSULE PO PRN ×3 (09:05→19:45)
[2020-10-01] MEDS ORDERED: VANCOMYCIN 1,400 MG in SODIUM CHLORIDE 0.9% 250 ML IV SCH (10:30)
[2020-10-01 11:40] VITALS: BP 128/80
[2020-10-01] MEDS ORDERED: POTASSIUM PHOSPHATE 44 MEQ in SODIUM CHLORIDE 0.9% 500 ML IV ONE (12:30)
[2020-10-01] MEDS: ZINC SULFATE 220 MG CAPSULE PO SCH (12:55)
[2020-10-01] MEDS: CHOLECALCIFEROL 5,000u TAB PO SCH (12:55)
[2020-10-01] MEDS: MULTIVITS,STRESS FORMULA 1 TABLET PO SCH (12:55)
[2020-10-01 14:00] VITALS: BP 128/80
[2020-10-01] MEDS: ASCORBIC ACID 500 MG TABLET PO SCH (17:24)
[2020-10-01] MEDS: MELATONIN 5 MG TABLET PO SCH (20:28)
[2020-10-01] MEDS: ATORVASTATIN 20 MG TABLET PO SCH (20:28)
[2020-10-01] MEDS: INSULIN GLARGINE 100 UNITS/ML, PEN SQ-INSULIN SCH (20:32)
[2020-10-01 20:48] VITALS: BP 115/77
[2020-10-02 01:34] VITALS: BP 132/83
[2020-10-02] MEDS: AMPICILLIN/SULBACTAM 3 GM in SODIUM CHLORIDE 0.9% 100 ML IV SCH ×3 (01:57→17:54)
[2020-10-02] MEDS: HEPARIN 5,000 UNITS/ML, 1ML SQ SCH ×3 (01:57→17:54)
[2020-10-02] MEDS: ACETAMINOPHEN 325 MG TABLET PO PRN ×2 (04:51→20:28)
[2020-10-02] MEDS: GABAPENTIN 300 MG CAPSULE PO PRN ×2 (04:51→20:29)
[2020-10-02 05:28] LABS: BASOPHILS % (AUTO) 0 % (0-1); EOSINOPHILS % (AUTO) 0 % (1-7); LYMPHOCYTES % (AUTO) 10 % (22-44); MEAN CORPUSCULAR HEMOGLOBIN 29.2 pg (27.5-34.5); MEAN CORPUSCULAR HGB CONC 35.1 g/dL (33.2-36.2); MONOCYTES % (AUTO) 9 % (2-9); NEUTROPHILS % (AUTO) 81 % (42-75); PLATELET COUNT 180 x10^3/uL (130-400); RED BLOOD COUNT 3.77 x10^6/uL (4.38-5.82); RED CELL DISTRIBUTION WIDTH 15.1 % (9.4-14.8)
[2020-10-02 05:31] LABS: MD NO
[2020-10-02 05:39] LABS: ALBUMIN 2.2 g/dL (3.4-5.0); ANION GAP 10 mmol/L (5-15); CALCIUM 8.6 mg/dL (8.5-10.1); CHLORIDE 102 mmol/L (98-107)
[2020-10-02 05:40] LABS: CREATININE 0.64 mg/dL (0.7-1.3)
[2020-10-02 06:49] VITALS: BP 116/76
[2020-10-02] MEDS: MULTIVITS,STRESS FORMULA 1 TABLET PO SCH (07:57)
[2020-10-02] MEDS: INSULIN LISPRO 100 UNITS/ML, PEN SQ-INSULIN SCH ×4 (07:57→20:32)
[2020-10-02] MEDS: ASCORBIC ACID 500 MG TABLET PO SCH ×2 (07:58→17:54)
[2020-10-02] MEDS: SENNA/DOCUSATE TABLET PO SCH (07:58)
[2020-10-02] MEDS: ZIPRASIDONE 40MG CAPSULE PO SCH ×2 (07:58→20:27)
[2020-10-02] MEDS: ZINC SULFATE 220 MG CAPSULE PO SCH (07:58)
[2020-10-02] MEDS: CHOLECALCIFEROL 5,000u TAB PO SCH (07:58)
[2020-10-02] MEDS ORDERED: POTASSIUM PHOSPHATE 44 MEQ in SODIUM CHLORIDE 0.9% 500 ML IV ONE (09:00)
[2020-10-02 13:04] VITALS: BP 136/83
[2020-10-02 18:49] VITALS: BP 159/89
[2020-10-02] MEDS: ATORVASTATIN 20 MG TABLET PO SCH (20:28)
[2020-10-02] MEDS: MELATONIN 5 MG TABLET PO SCH (20:28)
[2020-10-02] MEDS: INSULIN GLARGINE 100 UNITS/ML, PEN SQ-INSULIN SCH (20:33)
[2020-10-03 00:38] VITALS: BP 126/80
[2020-10-03] MEDS: HEPARIN 5,000 UNITS/ML, 1ML SQ SCH ×3 (02:29→16:18)
[2020-10-03] MEDS: AMPICILLIN/SULBACTAM 3 GM in SODIUM CHLORIDE 0.9% 100 ML IV SCH ×2 (02:30→09:47)
[2020-10-03 05:55] LABS: BASOPHILS % (AUTO) 0 % (0-1); EOSINOPHILS % (AUTO) 1 % (1-7); LYMPHOCYTES % (AUTO) 13 % (22-44); MEAN CORPUSCULAR HEMOGLOBIN 28.4 pg (27.5-34.5); MEAN CORPUSCULAR HGB CONC 33.8 g/dL (33.2-36.2); MONOCYTES % (AUTO) 11 % (2-9); NEUTROPHILS % (AUTO) 75 % (42-75); PLATELET COUNT 211 x10^3/uL (130-400); RED BLOOD COUNT 3.68 x10^6/uL (4.38-5.82); RED CELL DISTRIBUTION WIDTH 15.1 % (9.4-14.8)
[2020-10-03 06:02] LABS: ALBUMIN 2.1 g/dL (3.4-5.0); ANION GAP 10 mmol/L (5-15); CALCIUM 8.6 mg/dL (8.5-10.1); CHLORIDE 100 mmol/L (98-107); CREATININE 0.65 mg/dL (0.7-1.3)
[2020-10-03 06:11] LABS: MD SCAN
[2020-10-03] MEDS: INSULIN LISPRO 100 UNITS/ML, PEN SQ-INSULIN SCH ×4 (07:19→21:39)
[2020-10-03 08:14] VITALS: BP 139/85
[2020-10-03] MEDS: SENNA/DOCUSATE TABLET PO SCH (09:00)
[2020-10-03] MEDS: ZIPRASIDONE 40MG CAPSULE PO SCH ×2 (09:18→21:38)
[2020-10-03] MEDS: ASCORBIC ACID 500 MG TABLET PO SCH ×2 (09:18→16:18)
[2020-10-03] MEDS: CHOLECALCIFEROL 5,000u TAB PO SCH (09:19)
[2020-10-03] MEDS: MULTIVITS,STRESS FORMULA 1 TABLET PO SCH (09:19)
[2020-10-03] MEDS: POTASSIUM CHLORIDE 20 MEQ TAB.ER.PRT PO SCH ×2 (09:19→16:18)
[2020-10-03] MEDS: ZINC SULFATE 220 MG CAPSULE PO SCH (09:47)
[2020-10-03 12:17] VITALS: BP 148/85
[2020-10-03 19:11] VITALS: BP 161/91
[2020-10-03] MEDS: MELATONIN 5 MG TABLET PO SCH (21:37)
[2020-10-03] MEDS: AMOXICILLIN/CLAV 875-125MG TABLET PO SCH (21:38)
[2020-10-03] MEDS: ATORVASTATIN 20 MG TABLET PO SCH (21:38)
[2020-10-03] MEDS: ACETAMINOPHEN 325 MG TABLET PO PRN (21:38)
[2020-10-03] MEDS: GABAPENTIN 300 MG CAPSULE PO PRN (21:38)
[2020-10-03] MEDS: INSULIN GLARGINE 100 UNITS/ML, PEN SQ-INSULIN SCH (21:39)
[2020-10-04 00:23] VITALS: BP 138/85
[2020-10-04] MEDS: HEPARIN 5,000 UNITS/ML, 1ML SQ SCH ×3 (01:55→16:36)
[2020-10-04 06:34] VITALS: BP 137/80
[2020-10-04 06:35] LABS: ANION GAP 10 mmol/L (5-15); CALCIUM 8.3 mg/dL (8.5-10.1); CHLORIDE 102 mmol/L (98-107); CREATININE 0.63 mg/dL (0.7-1.3)
[2020-10-04 07:28] LABS: ALBUMIN 1.7 g/dL (3.4-5.0)
[2020-10-04] MEDS: INSULIN LISPRO 100 UNITS/ML, PEN SQ-INSULIN SCH ×4 (07:53→21:13)
[2020-10-04] MEDS: ASCORBIC ACID 500 MG TABLET PO SCH ×2 (07:54→16:37)
[2020-10-04] MEDS: POTASSIUM CHLORIDE 20 MEQ TAB.ER.PRT PO SCH ×2 (07:54→16:37)
[2020-10-04] MEDS: MULTIVITS,STRESS FORMULA 1 TABLET PO SCH (07:54)
[2020-10-04] MEDS: AMOXICILLIN/CLAV 875-125MG TABLET PO SCH ×2 (07:54→21:11)
[2020-10-04] MEDS: ZIPRASIDONE 40MG CAPSULE PO SCH ×2 (07:54→21:11)
[2020-10-04] MEDS: SENNA/DOCUSATE TABLET PO SCH (07:55)
[2020-10-04] MEDS: ZINC SULFATE 220 MG CAPSULE PO SCH (07:55)
[2020-10-04] MEDS: CHOLECALCIFEROL 5,000u TAB PO SCH (07:55)
[2020-10-04 13:14] VITALS: BP 132/77
[2020-10-04 20:27] VITALS: BP 136/80
[2020-10-04] MEDS: MELATONIN 5 MG TABLET PO SCH (21:11)
[2020-10-04] MEDS: ATORVASTATIN 20 MG TABLET PO SCH (21:11)
[2020-10-04] MEDS: INSULIN GLARGINE 100 UNITS/ML, PEN SQ-INSULIN SCH (21:12)
[2020-10-05 04:27] VITALS: BP 133/77
[2020-10-05] MEDS: ACETAMINOPHEN 325 MG TABLET PO PRN ×2 (04:31→16:00)
[2020-10-05] MEDS: HEPARIN 5,000 UNITS/ML, 1ML SQ SCH ×3 (04:31→17:05)
[2020-10-05 07:20] VITALS: BP 132/78
[2020-10-05] MEDS: ZIPRASIDONE 40MG CAPSULE PO SCH ×2 (07:52→22:28)
[2020-10-05] MEDS: AMOXICILLIN/CLAV 875-125MG TABLET PO SCH ×2 (07:52→22:28)
[2020-10-05] MEDS: ASCORBIC ACID 500 MG TABLET PO SCH ×2 (07:52→16:00)
[2020-10-05] MEDS: POTASSIUM CHLORIDE 20 MEQ TAB.ER.PRT PO SCH ×2 (07:53→16:00)
[2020-10-05] MEDS: ZINC SULFATE 220 MG CAPSULE PO SCH (07:53)
[2020-10-05] MEDS: MULTIVITS,STRESS FORMULA 1 TABLET PO SCH (07:53)
[2020-10-05] MEDS: CHOLECALCIFEROL 5,000u TAB PO SCH (07:53)
[2020-10-05] MEDS: SENNA/DOCUSATE TABLET PO SCH (07:54)
[2020-10-05] MEDS: INSULIN LISPRO 100 UNITS/ML, PEN SQ-INSULIN SCH ×4 (08:02→22:30)
[2020-10-05 14:23] VITALS: BP 120/78
[2020-10-05] MEDS: ATORVASTATIN 20 MG TABLET PO SCH (22:28)
[2020-10-05] MEDS: INSULIN GLARGINE 100 UNITS/ML, PEN SQ-INSULIN SCH (22:29)
[2020-10-05] MEDS: MELATONIN 5 MG TABLET PO SCH (22:55)
[2020-10-06] MEDS: HEPARIN 5,000 UNITS/ML, 1ML SQ SCH ×3 (01:18→16:33)
[2020-10-06 01:20] VITALS: BP 127/77
[2020-10-06] MEDS: ACETAMINOPHEN 325 MG TABLET PO PRN ×2 (01:27→20:30)
[2020-10-06 07:04] VITALS: BP 129/78
[2020-10-06] MEDS: ZINC SULFATE 220 MG CAPSULE PO SCH (08:10)
[2020-10-06] MEDS: MULTIVITS,STRESS FORMULA 1 TABLET PO SCH (08:10)
[2020-10-06] MEDS: ASCORBIC ACID 500 MG TABLET PO SCH ×2 (08:10→16:33)
[2020-10-06] MEDS: AMOXICILLIN/CLAV 875-125MG TABLET PO SCH ×2 (08:10→20:30)
[2020-10-06] MEDS: POTASSIUM CHLORIDE 20 MEQ TAB.ER.PRT PO SCH (08:10)
[2020-10-06] MEDS: CHOLECALCIFEROL 5,000u TAB PO SCH (08:10)
[2020-10-06] MEDS: ZIPRASIDONE 40MG CAPSULE PO SCH ×2 (08:10→20:30)
[2020-10-06] MEDS: INSULIN LISPRO 100 UNITS/ML, PEN SQ-INSULIN SCH ×4 (08:11→20:31)
[2020-10-06] MEDS: SENNA/DOCUSATE TABLET PO SCH (08:11)
[2020-10-06 12:22] VITALS: BP 134/79
[2020-10-06 20:00] VITALS: BP 124/77
[2020-10-06] MEDS: ATORVASTATIN 20 MG TABLET PO SCH (20:30)
[2020-10-06] MEDS: INSULIN GLARGINE 100 UNITS/ML, PEN SQ-INSULIN SCH (20:31)
[2020-10-07 01:11] VITALS: BP 118/77
[2020-10-07] MEDS: HEPARIN 5,000 UNITS/ML, 1ML SQ SCH ×3 (01:42→18:05)
[2020-10-07 07:40] VITALS: BP 125/74
[2020-10-07] MEDS: INSULIN LISPRO 100 UNITS/ML, PEN SQ-INSULIN SCH ×4 (10:13→21:46)
[2020-10-07] MEDS: AMOXICILLIN/CLAV 875-125MG TABLET PO SCH ×2 (10:13→21:45)
[2020-10-07] MEDS: MULTIVITS,STRESS FORMULA 1 TABLET PO SCH (10:13)
[2020-10-07] MEDS: CHOLECALCIFEROL 5,000u TAB PO SCH (10:14)
[2020-10-07] MEDS: SENNA/DOCUSATE TABLET PO SCH (10:14)
[2020-10-07] MEDS: ASCORBIC ACID 500 MG TABLET PO SCH ×2 (10:14→18:08)
[2020-10-07] MEDS: ZIPRASIDONE 40MG CAPSULE PO SCH ×2 (10:14→21:45)
[2020-10-07 12:38] VITALS: BP 121/73
[2020-10-07 20:34] VITALS: BP 134/76
[2020-10-07] MEDS: INSULIN GLARGINE 100 UNITS/ML, PEN SQ-INSULIN SCH (21:45)
[2020-10-07] MEDS: ATORVASTATIN 20 MG TABLET PO SCH (21:45)
[2020-10-08] MEDS: HEPARIN 5,000 UNITS/ML, 1ML SQ SCH ×3 (02:11→16:50)
[2020-10-08 02:30] VITALS: BP 134/79
[2020-10-08 06:47] VITALS: BP 142/84
[2020-10-08] MEDS: INSULIN LISPRO 100 UNITS/ML, PEN SQ-INSULIN SCH ×4 (07:00→20:44)
[2020-10-08] MEDS: SENNA/DOCUSATE TABLET PO SCH (09:00)
[2020-10-08] MEDS: ASCORBIC ACID 500 MG TABLET PO SCH ×2 (09:29→16:51)
[2020-10-08] MEDS: AMOXICILLIN/CLAV 875-125MG TABLET PO SCH ×2 (09:29→20:45)
[2020-10-08] MEDS: ZIPRASIDONE 40MG CAPSULE PO SCH ×2 (09:29→20:45)
[2020-10-08] MEDS: CHOLECALCIFEROL 5,000u TAB PO SCH (09:29)
[2020-10-08] MEDS: MULTIVITS,STRESS FORMULA 1 TABLET PO SCH (09:29)
[2020-10-08 13:08] VITALS: BP 159/87
[2020-10-08 20:19] VITALS: BP 131/80
[2020-10-08] MEDS: ATORVASTATIN 20 MG TABLET PO SCH (20:45)
[2020-10-08] MEDS: INSULIN GLARGINE 100 UNITS/ML, PEN SQ-INSULIN SCH (20:45)
[2020-10-09 01:33] VITALS: BP 133/77
[2020-10-09] MEDS: HEPARIN 5,000 UNITS/ML, 1ML SQ SCH ×3 (01:35→16:50)
[2020-10-09] MEDS: TRAZODONE 150MG TABLET PO PRN ×2 (01:38→21:30)
[2020-10-09 07:40] VITALS: BP 142/84
[2020-10-09] MEDS: CHOLECALCIFEROL 5,000u TAB PO SCH (08:16)
[2020-10-09] MEDS: MULTIVITS,STRESS FORMULA 1 TABLET PO SCH (08:16)
[2020-10-09] MEDS: AMOXICILLIN/CLAV 875-125MG TABLET PO SCH ×2 (08:16→21:29)
[2020-10-09] MEDS: ASCORBIC ACID 500 MG TABLET PO SCH ×2 (08:16→16:49)
[2020-10-09] MEDS: ZIPRASIDONE 40MG CAPSULE PO SCH ×2 (08:16→21:30)
[2020-10-09] MEDS: INSULIN LISPRO 100 UNITS/ML, PEN SQ-INSULIN SCH ×4 (08:17→21:29)
[2020-10-09] MEDS: SENNA/DOCUSATE TABLET PO SCH (08:17)
[2020-10-09] MEDS: INSULIN GLARGINE 100 UNITS/ML, PEN SQ-INSULIN SCH ×2 (08:24→21:28)
[2020-10-09 13:41] VITALS: BP 121/78
[2020-10-09 18:29] VITALS: BP 118/73
[2020-10-09] MEDS: ATORVASTATIN 20 MG TABLET PO SCH (21:31)
[2020-10-10 00:53] VITALS: BP 123/75
[2020-10-10] MEDS: HEPARIN 5,000 UNITS/ML, 1ML SQ SCH ×3 (01:51→16:37)
[2020-10-10 08:00] VITALS: BP 131/71
[2020-10-10] MEDS: MULTIVITS,STRESS FORMULA 1 TABLET PO SCH (08:15)
[2020-10-10] MEDS: ASCORBIC ACID 500 MG TABLET PO SCH ×2 (08:15→16:38)
[2020-10-10] MEDS: ZIPRASIDONE 40MG CAPSULE PO SCH ×2 (08:15→20:31)
[2020-10-10] MEDS: SENNA/DOCUSATE TABLET PO SCH (08:16)
[2020-10-10] MEDS: INSULIN LISPRO 100 UNITS/ML, PEN SQ-INSULIN SCH ×4 (08:16→20:33)
[2020-10-10] MEDS: AMOXICILLIN/CLAV 875-125MG TABLET PO SCH ×2 (08:16→20:31)
[2020-10-10] MEDS: INSULIN GLARGINE 100 UNITS/ML, PEN SQ-INSULIN SCH ×2 (08:17→20:32)
[2020-10-10] MEDS: CHOLECALCIFEROL 5,000u TAB PO SCH (08:17)
[2020-10-10 12:02] VITALS: BP 123/76
[2020-10-10 18:47] VITALS: BP 126/79
[2020-10-10] MEDS: ATORVASTATIN 20 MG TABLET PO SCH (20:31)
[2020-10-10] MEDS: TRAZODONE 150MG TABLET PO PRN (20:31)
[2020-10-11 01:41] VITALS: BP 120/80
[2020-10-11] MEDS: HEPARIN 5,000 UNITS/ML, 1ML SQ SCH ×3 (01:57→18:19)
[2020-10-11 07:05] VITALS: BP 118/76
[2020-10-11] MEDS: ZIPRASIDONE 40MG CAPSULE PO SCH ×2 (09:02→20:28)
[2020-10-11] MEDS: SENNA/DOCUSATE TABLET PO SCH (09:03)
[2020-10-11] MEDS: CHOLECALCIFEROL 5,000u TAB PO SCH (09:03)
[2020-10-11] MEDS: MULTIVITS,STRESS FORMULA 1 TABLET PO SCH (09:03)
[2020-10-11] MEDS: ASCORBIC ACID 500 MG TABLET PO SCH ×2 (09:03→17:44)
[2020-10-11] MEDS: AMOXICILLIN/CLAV 875-125MG TABLET PO SCH ×2 (09:03→20:27)
[2020-10-11] MEDS: INSULIN GLARGINE 100 UNITS/ML, PEN SQ-INSULIN SCH ×2 (09:03→20:29)
[2020-10-11] MEDS: INSULIN LISPRO 100 UNITS/ML, PEN SQ-INSULIN SCH ×4 (09:04→20:29)
[2020-10-11 12:42] VITALS: BP 124/76
[2020-10-11 19:24] VITALS: BP 131/77
[2020-10-11] MEDS: TRAZODONE 150MG TABLET PO PRN (20:27)
[2020-10-11] MEDS: ATORVASTATIN 20 MG TABLET PO SCH (20:27)
[2020-10-12 01:26] VITALS: BP 126/72
[2020-10-12] MEDS: HEPARIN 5,000 UNITS/ML, 1ML SQ SCH ×3 (02:16→18:09)
[2020-10-12 07:05] VITALS: BP 127/79
[2020-10-12] MEDS: INSULIN LISPRO 100 UNITS/ML, PEN SQ-INSULIN SCH ×4 (08:43→20:57)
[2020-10-12] MEDS: MULTIVITS,STRESS FORMULA 1 TABLET PO SCH (08:44)
[2020-10-12] MEDS: ZIPRASIDONE 40MG CAPSULE PO SCH ×2 (08:44→20:58)
[2020-10-12] MEDS: CHOLECALCIFEROL 5,000u TAB PO SCH (08:45)
[2020-10-12] MEDS: ASCORBIC ACID 500 MG TABLET PO SCH ×2 (08:45→17:32)
[2020-10-12] MEDS: SENNA/DOCUSATE TABLET PO SCH (08:45)
[2020-10-12] MEDS: INSULIN GLARGINE 100 UNITS/ML, PEN SQ-INSULIN SCH ×2 (08:49→20:58)
[2020-10-12 12:33] VITALS: BP 128/77
[2020-10-12 20:02] VITALS: BP 121/74
[2020-10-12] MEDS: ATORVASTATIN 20 MG TABLET PO SCH (20:58)
[2020-10-13 01:08] VITALS: BP 118/72
[2020-10-13] MEDS: HEPARIN 5,000 UNITS/ML, 1ML SQ SCH ×3 (02:02→18:01)
[2020-10-13 06:58] VITALS: BP 131/82
[2020-10-13] MEDS: ASCORBIC ACID 500 MG TABLET PO SCH ×2 (08:06→16:38)
[2020-10-13] MEDS: MULTIVITS,STRESS FORMULA 1 TABLET PO SCH (08:06)
[2020-10-13] MEDS: CHOLECALCIFEROL 5,000u TAB PO SCH (08:06)
[2020-10-13] MEDS: ZIPRASIDONE 40MG CAPSULE PO SCH ×2 (08:07→20:51)
[2020-10-13] MEDS: SENNA/DOCUSATE TABLET PO SCH (08:07)
[2020-10-13] MEDS: INSULIN GLARGINE 100 UNITS/ML, PEN SQ-INSULIN SCH ×2 (08:08→21:07)
[2020-10-13] MEDS: INSULIN LISPRO 100 UNITS/ML, PEN SQ-INSULIN SCH ×4 (08:09→21:07)
[2020-10-13 13:11] VITALS: BP 128/77
[2020-10-13] MEDS: ATORVASTATIN 20 MG TABLET PO SCH (20:51)
[2020-10-13 21:02] VITALS: BP_SYST 127; BP_SYST 27; BP_DIAS 79
[2020-10-14 01:47] VITALS: BP 127/76
[2020-10-14] MEDS: HEPARIN 5,000 UNITS/ML, 1ML SQ SCH ×3 (02:51→16:43)
[2020-10-14 06:47] VITALS: BP 124/79
[2020-10-14] MEDS: INSULIN LISPRO 100 UNITS/ML, PEN SQ-INSULIN SCH ×4 (07:00→20:56)
[2020-10-14] MEDS: SENNA/DOCUSATE TABLET PO SCH (08:18)
[2020-10-14] MEDS: CHOLECALCIFEROL 5,000u TAB PO SCH (08:18)
[2020-10-14] MEDS: MULTIVITS,STRESS FORMULA 1 TABLET PO SCH (08:18)
[2020-10-14] MEDS: ZIPRASIDONE 40MG CAPSULE PO SCH ×2 (08:18→20:57)
[2020-10-14] MEDS: ASCORBIC ACID 500 MG TABLET PO SCH ×2 (08:18→16:44)
[2020-10-14] MEDS: INSULIN GLARGINE 100 UNITS/ML, PEN SQ-INSULIN SCH ×2 (08:19→20:57)
[2020-10-14 12:36] VITALS: BP 125/80
[2020-10-14 20:38] VITALS: BP 118/79
[2020-10-14] MEDS: ATORVASTATIN 20 MG TABLET PO SCH (20:57)
[2020-10-15] MEDS: HEPARIN 5,000 UNITS/ML, 1ML SQ SCH ×3 (01:54→21:39)
[2020-10-15 02:43] VITALS: BP 130/82
[2020-10-15 07:02] VITALS: BP 122/82
[2020-10-15] MEDS: SENNA/DOCUSATE TABLET PO SCH (08:54)
[2020-10-15] MEDS: ZIPRASIDONE 40MG CAPSULE PO SCH ×2 (08:54→21:40)
[2020-10-15] MEDS: ASCORBIC ACID 500 MG TABLET PO SCH ×2 (08:54→16:39)
[2020-10-15] MEDS: MULTIVITS,STRESS FORMULA 1 TABLET PO SCH (08:55)
[2020-10-15] MEDS: CHOLECALCIFEROL 5,000u TAB PO SCH (08:55)
[2020-10-15] MEDS: INSULIN LISPRO 100 UNITS/ML, PEN SQ-INSULIN SCH ×4 (08:58→21:41)
[2020-10-15] MEDS: INSULIN GLARGINE 100 UNITS/ML, PEN SQ-INSULIN SCH ×2 (08:59→21:40)
[2020-10-15 12:26] VITALS: BP 122/81
[2020-10-15 18:26] VITALS: BP 120/78
[2020-10-15] MEDS: ATORVASTATIN 20 MG TABLET PO SCH (21:39)
[2020-10-16 00:10] VITALS: BP 121/81
[2020-10-16] MEDS: HEPARIN 5,000 UNITS/ML, 1ML SQ SCH ×3 (05:32→21:24)
[2020-10-16 06:42] VITALS: BP 121/81
[2020-10-16] MEDS: ZIPRASIDONE 40MG CAPSULE PO SCH ×2 (08:14→21:24)
[2020-10-16] MEDS: CHOLECALCIFEROL 5,000u TAB PO SCH (08:14)
[2020-10-16] MEDS: ASCORBIC ACID 500 MG TABLET PO SCH ×2 (08:15→17:19)
[2020-10-16] MEDS: SENNA/DOCUSATE TABLET PO SCH (08:15)
[2020-10-16] MEDS: MULTIVITS,STRESS FORMULA 1 TABLET PO SCH (08:15)
[2020-10-16] MEDS: INSULIN LISPRO 100 UNITS/ML, PEN SQ-INSULIN SCH ×4 (08:17→21:25)
[2020-10-16] MEDS: INSULIN GLARGINE 100 UNITS/ML, PEN SQ-INSULIN SCH ×2 (08:18→21:25)
[2020-10-16 14:08] VITALS: BP 119/74
[2020-10-16 18:55] VITALS: BP 109/71
[2020-10-16] MEDS: ATORVASTATIN 20 MG TABLET PO SCH (21:24)
[2020-10-17 00:26] VITALS: BP 114/78
[2020-10-17] MEDS: HEPARIN 5,000 UNITS/ML, 1ML SQ SCH ×3 (05:25→23:10)
[2020-10-17 07:04] VITALS: BP 114/81
[2020-10-17] MEDS: SENNA/DOCUSATE TABLET PO SCH (07:45)
[2020-10-17] MEDS: ZIPRASIDONE 40MG CAPSULE PO SCH ×2 (07:45→20:45)
[2020-10-17] MEDS: CHOLECALCIFEROL 5,000u TAB PO SCH (07:45)
[2020-10-17] MEDS: MULTIVITS,STRESS FORMULA 1 TABLET PO SCH (07:45)
[2020-10-17] MEDS: ASCORBIC ACID 500 MG TABLET PO SCH ×2 (07:45→17:57)
[2020-10-17] MEDS: INSULIN GLARGINE 100 UNITS/ML, PEN SQ-INSULIN SCH ×2 (07:59→20:46)
[2020-10-17] MEDS: INSULIN LISPRO 100 UNITS/ML, PEN SQ-INSULIN SCH ×4 (07:59→20:45)
[2020-10-17 14:10] VITALS: BP 113/75
[2020-10-17 18:55] VITALS: BP 105/67
[2020-10-17] MEDS: MIRTAZAPINE 15 MG TABLET PO SCH (20:44)
[2020-10-17] MEDS: ATORVASTATIN 20 MG TABLET PO SCH (20:45)
[2020-10-18 00:39] VITALS: BP 119/78
[2020-10-18 07:16] VITALS: BP 118/78
[2020-10-18] MEDS: MULTIVITS,STRESS FORMULA 1 TABLET PO SCH (08:22)
[2020-10-18] MEDS: ASCORBIC ACID 500 MG TABLET PO SCH ×2 (08:22→16:35)
[2020-10-18] MEDS: CHOLECALCIFEROL 5,000u TAB PO SCH (08:22)
[2020-10-18] MEDS: ZIPRASIDONE 40MG CAPSULE PO SCH ×2 (08:22→21:01)
[2020-10-18] MEDS: INSULIN GLARGINE 100 UNITS/ML, PEN SQ-INSULIN SCH ×2 (08:23→21:02)
[2020-10-18] MEDS: INSULIN LISPRO 100 UNITS/ML, PEN SQ-INSULIN SCH ×4 (08:23→21:02)
[2020-10-18] MEDS: HEPARIN 5,000 UNITS/ML, 1ML SQ SCH ×2 (08:23→16:35)
[2020-10-18] MEDS: SENNA/DOCUSATE TABLET PO SCH (08:24)
[2020-10-18 12:13] VITALS: BP 129/84
[2020-10-18 20:16] VITALS: BP 125/75
[2020-10-18] MEDS: ATORVASTATIN 20 MG TABLET PO SCH (21:01)
[2020-10-18] MEDS: MIRTAZAPINE 15 MG TABLET PO SCH (21:01)
[2020-10-19] MEDS: HEPARIN 5,000 UNITS/ML, 1ML SQ SCH ×2 (00:44→07:40)
[2020-10-19 00:47] VITALS: BP 124/83
[2020-10-19] MEDS: ZIPRASIDONE 40MG CAPSULE PO SCH (07:39)
[2020-10-19] MEDS: ASCORBIC ACID 500 MG TABLET PO SCH (07:39)
[2020-10-19] MEDS: SENNA/DOCUSATE TABLET PO SCH (07:39)
[2020-10-19] MEDS: MULTIVITS,STRESS FORMULA 1 TABLET PO SCH (07:39)
[2020-10-19] MEDS: CHOLECALCIFEROL 5,000u TAB PO SCH (07:40)
[2020-10-19] MEDS: INSULIN LISPRO 100 UNITS/ML, PEN SQ-INSULIN SCH ×2 (08:10→11:48)
[2020-10-19] MEDS: INSULIN GLARGINE 100 UNITS/ML, PEN SQ-INSULIN SCH (08:10)
[2020-10-19 09:59] VITALS: BP 126/88
[2020-10-19] MEDS ORDERED: INSU100I13 SQ-INSULIN (11:51)
[2020-10-19] MEDS ORDERED: MULT1TAB76 PO (11:51)
[2020-10-19] MEDS ORDERED: ASCO500T9 PO (11:51)
[2020-10-19] MEDS ORDERED: SENN-211 PO (11:51)
[2020-10-19 14:36] VITALS: BP 127/82
== END 2020-10-19 15:21 | DRG 720 ==
LOC: ED 10:06 → EDIP 10:17 → 4EST 11:29
PROVIDERS: ADMIT Internal Medicine Infectious Disease; ATTEND Family Medicine
DX: A40.1 Sepsis due to streptococcus, group B (principal); E11.65 Type 2 diabetes mellitus with hyperglycemia; E11.69 Type 2 diabetes mellitus with other specified complication; E86.0 Dehydration; L03.115 Cellulitis of right lower limb; L03.116 Cellulitis of left lower limb; F31.9 Bipolar disorder, unspecified; R26.2 Difficulty in walking, not elsewhere classified; R74.01 Elevation of levels of liver transaminase levels; M86.671 Other chronic osteomyelitis, right ankle and foot; Z59.0 Homelessness; Z79.4 Long term (current) use of insulin; Z87.891 Personal history of nicotine dependence; Z89.422 Acquired absence of other left toe(s); Z72.89 Other problems related to lifestyle
CPT/HCPCS: 36415; 80053; 80069; 82962; 83036; 83605; 83690; 83735; 84100; 84145; 84439; 84443; 85025; 85610; 87040; 87147; 87181; 93970; 96361; 96365; 96375; G0378; J0295; J1644; J3370; J3480; A9575; J1815; J7030; J7040; J7050; J7120

== ENCOUNTER 2020-11-21 11:56 | Inpatient (IN) | payer MEDICAID ==
[~2020-11-21] VITALS: Ht 182.9 cm; Wt 79.9 kg
[~2020-11-21 11:56] MED LIST changes: +SENN-211 PO
--- NOTE | 2020-11-21 12:19 | NUR ---
INTINAL CONTACT: PT W/ C/O "I HAVE EXTREME PAIN IN MY LEFT FOOT, I THINK I HAVE AN INFECTION AGAIN". "I ALSO FEEL SUICIDAL AND WANT TO DRINK MYSELF TO BUT HAVEN'T DRANK YET TODAY." PT STATES HE LOST HIS HOME AND NO LONGER WANTS TO LIVE. PT TO ROOM WITH STEADY GAIT WITH ASSIST OF WALKER FROM HOME. PT BELONGINGS TAKEN, STICKERED WITH PT LABLES, AND PUT IN PT BELONGINGS BAG IN LOCKER. PT ATTEMPTED AND UNABLE TO PROVIDE UA A THIS TIME. SAFTEY PRECAUTIONS IN PLACE. SITTER AT BEDSIDE.
[2020-11-21 12:30] LABS: BASOPHILS % (AUTO) 1 % (0-1); EOSINOPHILS % (AUTO) 1 % (1-7); LYMPHOCYTES % (AUTO) 30 % (22-44); MEAN CORPUSCULAR HEMOGLOBIN 26.2 pg (27.5-34.5); MEAN CORPUSCULAR HGB CONC 33.5 g/dL (33.2-36.2); MEAN PLATELET VOLUME 7.6 fL (7.4-10.4); MONOCYTES % (AUTO) 9 % (2-9); NEUTROPHILS % (AUTO) 60 % (42-75); PLATELET COUNT 462 x10^3/uL (130-400); RED BLOOD COUNT 4.28 x10^6/uL (4.38-5.82); RED CELL DISTRIBUTION WIDTH 15.9 % (9.4-14.8)
[2020-11-21 12:36] LABS: ALANINE AMINOTRANSFERASE 14 U/L (12-78); ALBUMIN 2.6 g/dL (3.4-5.0); ANION GAP 14 mmol/L (5-15); CALCIUM 8.1 mg/dL (8.5-10.1); CHLORIDE 99 mmol/L (98-107); SALICYLATE LEVEL 2.1 mg/dL (2.8-20.0)
[2020-11-21 12:38] LABS: ALKALINE PHOSPHATASE 97 U/L (45-117); BILIRUBIN,TOTAL 0.5 mg/dL (0.2-1.0); TOTAL PROTEIN 7.8 g/dL (6.4-8.2)
[2020-11-21 14:07] LABS: MICROSCOPIC AUTO
--- NOTE | 2020-11-21 15:05 | NUR ---
PT RESTING IN BED. NADN.VSS.
[2020-11-21 15:12] LABS: AMPHETAMINE SCREEN, URINE Negative (Negative); BARBITURATE SCREEN, URINE Negative (Negative); BENZODIAZEPINE SCREEN, URINE Negative (Negative); CANNABINOID SCREEN, URINE Negative (Negative); COCAINE SCREEN, URINE Negative (Negative); METHADONE SCREEN, URINE Negative (Negative); OPIATE SCREEN, URINE Negative (Negative)
[2020-11-21] MEDS ORDERED: INSULIN SINGLE DOSE, ER ONE (15:46)
[2020-11-21] MEDS ORDERED: INSULIN REGULAR 100 UNITS/ML, 3ML VIAL SQ-INSULIN ONE (16:00)
--- NOTE | 2020-11-21 16:04 | NUR ---
PT PROVIDED WITH MEAL TRAY. SITTING UP EATING. VSS. NADN. SITTER AT BEDSIDE. SAFETY PRECAUTIONS IN PLACE.
--- NOTE | 2020-11-21 16:21 | NUR ---
REPORT CALLED TO OLIVIA SETHI.
--- NOTE | 2020-11-21 17:39 | NUR ---
PT TRANSFERED TO U VIA WHEELCHAIR. WALKER AND BELONGINGS TRANSFERRED WITH PT.
[2020-11-21 18:35] VITALS: BP 122/74
[2020-11-21 21:15] VITALS: BP 103/69
[2020-11-21] MEDS: ZIPRASIDONE 40MG CAPSULE PO SCH (21:17)
[2020-11-21] MEDS: MIRTAZAPINE 15 MG TABLET PO SCH (21:17)
[2020-11-21] MEDS: INSULIN LISPRO 100 UNITS/ML, PEN SQ-INSULIN SCH (21:18)
[2020-11-22] MEDS: INSULIN LISPRO 100 UNITS/ML, PEN SQ-INSULIN SCH ×4 (07:00→20:43)
[2020-11-22 07:30] VITALS: BP 100/65
[2020-11-22] MEDS: ZIPRASIDONE 40MG CAPSULE PO SCH ×2 (08:30→20:42)
[2020-11-22] MEDS ORDERED: GLIP5TAB10 PO (15:52)
[2020-11-22] MEDS ORDERED: ZIPR60CA2 PO (15:52)
[2020-11-22] MEDS ORDERED: INSU100V8 SQ (15:53)
[2020-11-22 19:12] VITALS: BP 105/65
[2020-11-22] MEDS: ATORVASTATIN 20 MG TABLET PO SCH (20:41)
[2020-11-22] MEDS: MIRTAZAPINE 15 MG TABLET PO SCH (20:41)
[2020-11-22] MEDS: TRAZODONE 150MG TABLET PO PRN (20:42)
[2020-11-22] MEDS: INSULIN GLARGINE 100 UNITS/ML, PEN SQ-INSULIN SCH (20:48)
[2020-11-23 06:07] LABS: BASOPHILS % (AUTO) 1 % (0-1); EOSINOPHILS % (AUTO) 3 % (1-7); LYMPHOCYTES % (AUTO) 40 % (22-44); MEAN CORPUSCULAR HEMOGLOBIN 26.3 pg (27.5-34.5); MEAN CORPUSCULAR HGB CONC 34.2 g/dL (33.2-36.2); MEAN PLATELET VOLUME 7.6 fL (7.4-10.4); MONOCYTES % (AUTO) 9 % (2-9); NEUTROPHILS % (AUTO) 47 % (42-75); PLATELET COUNT 279 x10^3/uL (130-400); RED BLOOD COUNT 3.77 x10^6/uL (4.38-5.82); RED CELL DISTRIBUTION WIDTH 16.3 % (9.4-14.8)
[2020-11-23 06:19] LABS: ANION GAP 8 mmol/L (5-15); CHLORIDE 105 mmol/L (98-107)
[2020-11-23 06:22] LABS: ALANINE AMINOTRANSFERASE 11 U/L (12-78); ALKALINE PHOSPHATASE 73 U/L (45-117); BILIRUBIN,TOTAL 0.5 mg/dL (0.2-1.0); CREATININE 0.62 mg/dL (0.7-1.3); TOTAL PROTEIN 6.2 g/dL (6.4-8.2)
[2020-11-23 07:28] VITALS: BP 107/68
[2020-11-23] MEDS: INSULIN LISPRO 100 UNITS/ML, PEN SQ-INSULIN SCH ×4 (07:39→20:18)
[2020-11-23] MEDS: ZIPRASIDONE 40MG CAPSULE PO SCH ×2 (08:22→20:17)
[2020-11-23 19:47] VITALS: BP 108/70
[2020-11-23] MEDS: ATORVASTATIN 20 MG TABLET PO SCH (20:17)
[2020-11-23] MEDS: TRAZODONE 150MG TABLET PO PRN (20:17)
[2020-11-23] MEDS: MIRTAZAPINE 15 MG TABLET PO SCH (20:17)
[2020-11-23] MEDS: INSULIN GLARGINE 100 UNITS/ML, PEN SQ-INSULIN SCH (20:23)
[2020-11-24] MEDS: INSULIN LISPRO 100 UNITS/ML, PEN SQ-INSULIN SCH ×4 (07:00→20:11)
[2020-11-24 07:11] VITALS: BP 112/71
[2020-11-24] MEDS: ZIPRASIDONE 40MG CAPSULE PO SCH ×2 (08:17→20:10)
[2020-11-24 19:22] VITALS: BP 116/74
[2020-11-24] MEDS: ATORVASTATIN 20 MG TABLET PO SCH (20:10)
[2020-11-24] MEDS: MIRTAZAPINE 15 MG TABLET PO SCH (20:10)
[2020-11-24] MEDS: INSULIN GLARGINE 100 UNITS/ML, PEN SQ-INSULIN SCH (20:11)
[2020-11-25] MEDS: INSULIN LISPRO 100 UNITS/ML, PEN SQ-INSULIN SCH ×4 (07:00→20:07)
[2020-11-25] MEDS: ZIPRASIDONE 40MG CAPSULE PO SCH ×2 (07:45→20:06)
[2020-11-25 07:54] VITALS: BP 107/69
[2020-11-25 19:16] VITALS: BP 106/70
[2020-11-25] MEDS: TRAZODONE 150MG TABLET PO PRN (20:05)
[2020-11-25] MEDS: ATORVASTATIN 20 MG TABLET PO SCH (20:06)
[2020-11-25] MEDS: INSULIN GLARGINE 100 UNITS/ML, PEN SQ-INSULIN SCH (20:06)
[2020-11-25] MEDS: MIRTAZAPINE 15 MG TABLET PO SCH (20:06)
[2020-11-26] MEDS: INSULIN LISPRO 100 UNITS/ML, PEN SQ-INSULIN SCH ×4 (07:00→21:00)
[2020-11-26 07:39] VITALS: BP 141/76
[2020-11-26] MEDS: ZIPRASIDONE 40MG CAPSULE PO SCH ×2 (09:43→20:15)
[2020-11-26 19:21] VITALS: BP 135/80
[2020-11-26] MEDS ORDERED: ACETAMINOPHEN 325 MG TABLET ONE (20:11)
[2020-11-26] MEDS: TRAZODONE 150MG TABLET PO PRN (20:14)
[2020-11-26] MEDS: MIRTAZAPINE 15 MG TABLET PO SCH (20:14)
[2020-11-26] MEDS: ATORVASTATIN 20 MG TABLET PO SCH (20:15)
[2020-11-26] MEDS: INSULIN GLARGINE 100 UNITS/ML, PEN SQ-INSULIN SCH (20:34)
[2020-11-26] MEDS: ACETAMINOPHEN 325 MG TABLET PO PRN (20:39)
[2020-11-27] MEDS: INSULIN LISPRO 100 UNITS/ML, PEN SQ-INSULIN SCH ×4 (07:00→20:57)
[2020-11-27 07:14] VITALS: BP 111/69
[2020-11-27] MEDS: ZIPRASIDONE 40MG CAPSULE PO SCH ×2 (08:35→20:57)
[2020-11-27 19:55] VITALS: BP 124/84
[2020-11-27] MEDS: ACETAMINOPHEN 325 MG TABLET PO PRN (20:58)
[2020-11-27] MEDS: MIRTAZAPINE 15 MG TABLET PO SCH (20:58)
[2020-11-27] MEDS: ATORVASTATIN 20 MG TABLET PO SCH (20:58)
[2020-11-27] MEDS: TRAZODONE 150MG TABLET PO PRN (20:58)
[2020-11-27] MEDS: INSULIN GLARGINE 100 UNITS/ML, PEN SQ-INSULIN SCH (20:58)
[2020-11-28] MEDS: INSULIN LISPRO 100 UNITS/ML, PEN SQ-INSULIN SCH ×4 (07:00→20:18)
[2020-11-28 07:08] VITALS: BP_SYST 119; BP_SYST 93; BP_DIAS 63; BP_DIAS 72
[2020-11-28] MEDS: ZIPRASIDONE 40MG CAPSULE PO SCH ×2 (08:23→20:11)
[2020-11-28 19:48] VITALS: BP 126/75
[2020-11-28] MEDS: MIRTAZAPINE 15 MG TABLET PO SCH (20:11)
[2020-11-28] MEDS: ATORVASTATIN 20 MG TABLET PO SCH (20:11)
[2020-11-28] MEDS: TRAZODONE 150MG TABLET PO PRN (20:11)
[2020-11-28] MEDS: ACETAMINOPHEN 325 MG TABLET PO PRN (20:11)
[2020-11-28] MEDS: INSULIN GLARGINE 100 UNITS/ML, PEN SQ-INSULIN SCH (20:17)
[2020-11-29] MEDS: INSULIN LISPRO 100 UNITS/ML, PEN SQ-INSULIN SCH ×4 (07:00→20:09)
[2020-11-29 07:24] VITALS: BP 128/78
[2020-11-29] MEDS: ZIPRASIDONE 40MG CAPSULE PO SCH ×2 (08:19→20:08)
[2020-11-29 19:24] VITALS: BP 112/71
[2020-11-29] MEDS: ATORVASTATIN 20 MG TABLET PO SCH (20:08)
[2020-11-29] MEDS: MIRTAZAPINE 15 MG TABLET PO SCH (20:08)
[2020-11-29] MEDS: ACETAMINOPHEN 325 MG TABLET PO PRN (20:08)
[2020-11-29] MEDS: TRAZODONE 150MG TABLET PO PRN (20:08)
[2020-11-29] MEDS: INSULIN GLARGINE 100 UNITS/ML, PEN SQ-INSULIN SCH (20:09)
[2020-11-30] MEDS: INSULIN LISPRO 100 UNITS/ML, PEN SQ-INSULIN SCH ×4 (07:00→20:49)
[2020-11-30 07:30] VITALS: BP 116/71
[2020-11-30] MEDS: ZIPRASIDONE 40MG CAPSULE PO SCH (08:41)
[2020-11-30 19:28] VITALS: BP 112/72
[2020-11-30] MEDS: TRAZODONE 150MG TABLET PO PRN (20:42)
[2020-11-30] MEDS: ZIPRASIDONE 20MG CAPSULE PO SCH (20:42)
[2020-11-30] MEDS: ACETAMINOPHEN 325 MG TABLET PO PRN (20:43)
[2020-11-30] MEDS: MIRTAZAPINE 15 MG TABLET PO SCH (20:43)
[2020-11-30] MEDS: ATORVASTATIN 20 MG TABLET PO SCH (20:43)
[2020-11-30] MEDS: INSULIN GLARGINE 100 UNITS/ML, PEN SQ-INSULIN SCH (20:50)
[2020-12-01] MEDS: INSULIN LISPRO 100 UNITS/ML, PEN SQ-INSULIN SCH ×4 (07:00→20:02)
[2020-12-01 07:28] VITALS: BP 107/68
[2020-12-01] MEDS: ZIPRASIDONE 20MG CAPSULE PO SCH ×2 (08:15→20:01)
[2020-12-01] MEDS: BUPROPION SR 150 MG TABLET PO SCH (08:16)
[2020-12-01] MEDS: TRAZODONE 150MG TABLET PO PRN (20:01)
[2020-12-01] MEDS: ATORVASTATIN 20 MG TABLET PO SCH (20:01)
[2020-12-01] MEDS: MIRTAZAPINE 15 MG TABLET PO SCH (20:01)
[2020-12-01] MEDS: ACETAMINOPHEN 325 MG TABLET PO PRN (20:01)
[2020-12-01] MEDS: INSULIN GLARGINE 100 UNITS/ML, PEN SQ-INSULIN SCH (20:03)
[2020-12-02] MEDS: INSULIN LISPRO 100 UNITS/ML, PEN SQ-INSULIN SCH ×4 (07:00→20:29)
[2020-12-02 07:15] VITALS: BP 106/64
[2020-12-02] MEDS: BUPROPION SR 150 MG TABLET PO SCH (09:26)
[2020-12-02] MEDS: ZIPRASIDONE 20MG CAPSULE PO SCH ×2 (09:27→20:28)
[2020-12-02 19:25] VITALS: BP 110/70
[2020-12-02] MEDS: MELATONIN 5 MG TABLET PO SCH (20:28)
[2020-12-02] MEDS: ATORVASTATIN 20 MG TABLET PO SCH (20:28)
[2020-12-02] MEDS: ACETAMINOPHEN 325 MG TABLET PO PRN (20:28)
[2020-12-02] MEDS: MIRTAZAPINE 15 MG TABLET PO SCH (20:28)
[2020-12-02] MEDS: INSULIN GLARGINE 100 UNITS/ML, PEN SQ-INSULIN SCH (20:30)
[2020-12-03] MEDS: INSULIN LISPRO 100 UNITS/ML, PEN SQ-INSULIN SCH ×4 (07:00→20:28)
[2020-12-03 07:38] VITALS: BP 105/69
[2020-12-03] MEDS: BUPROPION SR 150 MG TABLET PO SCH (08:32)
[2020-12-03] MEDS: ZIPRASIDONE 20MG CAPSULE PO SCH ×2 (08:32→20:22)
[2020-12-03] MEDS ORDERED: ZIPR20CA2 PO (15:55)
[2020-12-03] MEDS ORDERED: INSU100I13 SQ-INSULIN (15:55)
[2020-12-03] MEDS ORDERED: GLIP5TAB10 PO (15:55)
[2020-12-03] MEDS ORDERED: BUPR150T73 PO (15:55)
[2020-12-03] MEDS ORDERED: MELA5TAB14 PO (15:55)
[2020-12-03] MEDS ORDERED: ATOR20TA37 PO (15:55)
[2020-12-03] MEDS ORDERED: MIRT-14 PO (15:55)
[2020-12-03] MEDS ORDERED: TRAZ150T62 PO (15:55)
[2020-12-03 19:22] VITALS: BP 114/70
[2020-12-03] MEDS: ACETAMINOPHEN 325 MG TABLET PO PRN (19:38)
[2020-12-03] MEDS: TRAZODONE 150MG TABLET PO PRN (19:39)
[2020-12-03] MEDS: MELATONIN 5 MG TABLET PO SCH (20:21)
[2020-12-03] MEDS: ATORVASTATIN 20 MG TABLET PO SCH (20:21)
[2020-12-03] MEDS: MIRTAZAPINE 15 MG TABLET PO SCH (20:21)
[2020-12-03] MEDS: INSULIN GLARGINE 100 UNITS/ML, PEN SQ-INSULIN SCH (20:23)
[2020-12-04] MEDS: INSULIN LISPRO 100 UNITS/ML, PEN SQ-INSULIN SCH ×4 (07:00→21:00)
[2020-12-04 07:48] VITALS: BP 118/74
[2020-12-04] MEDS: ZIPRASIDONE 20MG CAPSULE PO SCH ×2 (08:19→20:35)
[2020-12-04] MEDS: BUPROPION SR 150 MG TABLET PO SCH (08:19)
[2020-12-04 18:40] VITALS: BP 112/73
[2020-12-04] MEDS: TRAZODONE 150MG TABLET PO PRN (19:28)
[2020-12-04] MEDS: ACETAMINOPHEN 325 MG TABLET PO PRN (19:28)
[2020-12-04] MEDS: ATORVASTATIN 20 MG TABLET PO SCH (20:35)
[2020-12-04] MEDS: MIRTAZAPINE 15 MG TABLET PO SCH (20:35)
[2020-12-04] MEDS: MELATONIN 5 MG TABLET PO SCH (20:35)
[2020-12-04] MEDS: INSULIN GLARGINE 100 UNITS/ML, PEN SQ-INSULIN SCH (20:36)
[2020-12-05] MEDS: INSULIN LISPRO 100 UNITS/ML, PEN SQ-INSULIN SCH (07:00)
[2020-12-05 07:27] VITALS: BP 106/68
[2020-12-05] MEDS: BUPROPION SR 150 MG TABLET PO SCH (08:17)
[2020-12-05] MEDS: ZIPRASIDONE 20MG CAPSULE PO SCH (08:18)
== END 2020-12-05 11:00 | disposition home or self-care (01) | DRG 885 ==
LOC: ED 12:14 → 3E 17:39
PROVIDERS: ADMIT Psychiatry & Neurology Psychosomatic Medicine; ATTEND Psychiatry & Neurology Psychosomatic Medicine
DX: F31.4 Bipolar disorder, current episode depressed, severe, without psychotic features (principal); E11.65 Type 2 diabetes mellitus with hyperglycemia; R45.851 Suicidal ideations; B95.62 Methicillin resistant Staphylococcus aureus infection as the cause of diseases classified elsewhere; F10.21 Alcohol dependence, in remission; E78.5 Hyperlipidemia, unspecified; F43.10 Post-traumatic stress disorder, unspecified; R53.1 Weakness; Z20.822 Contact with and (suspected) exposure to COVID-19; F12.20 Cannabis dependence, uncomplicated; S81.801A Unspecified open wound, right lower leg, initial encounter; X58.XXXA Exposure to other specified factors, initial encounter; J44.9 Chronic obstructive pulmonary disease, unspecified; Z59.0 Homelessness; Z78.9 Other specified health status; Z87.891 Personal history of nicotine dependence; Z79.899 Other long term (current) drug therapy; Z91.5 Personal history of self-harm; Z89.422 Acquired absence of other left toe(s); Z86.14 Personal history of Methicillin resistant Staphylococcus aureus infection; Z88.1 Allergy status to other antibiotic agents; Z88.8 Allergy status to other drugs, medicaments and biological substances; Y93.89 Activity, other specified; Y92.89 Other specified places as the place of occurrence of the external cause; Y99.8 Other external cause status
CPT/HCPCS: 36415; 71045; 80053; 80061; 80299; 80307; 80320; 80329; 81001; 82962; 84439; 84443; 85025; 87070; 87077; 87186; 87205; 87426; 93005; 99285; G0480; J1815